=== PATIENT | male | born 1955 | race Caucasian/White ===

== ENCOUNTER 2016-12-17 14:40 | Emergency (ER) | payer MEDICARE, MEDICAID ==
[~2016-12-17] VITALS: Ht 180.3 cm; Wt 38.6 kg
[~2016-12-17 14:40] MED LIST: BENA10TA47; DOCUSATE; IBUP1POW8; OXYCODONE; SENN-8
[2016-12-17 15:43] LABS: Albumin 3.9 g/dL (3.4-5.0); Anion Gap 7 (5-15); Aspartate Aminotransferase 50 U/L (15-37); BUN/Creatinine Ratio 17.1; Blood Urea Nitrogen 19 mg/dL (7-18); Calcium 8.8 mg/dL (8.5-10.1); Carbon Dioxide 29 mmol/L (21-32); Chloride 107 mmol/L (98-107); GFR African American 87 mL/min; GFR Non-African American 72 mL/min; Glucose 85 mg/dL (74-106); Magnesium 2.3 mg/dL (1.6-2.6); Sodium 143 mmol/L (136-145)
[2016-12-17 15:48] LABS: Alkaline Phosphatase 120 U/L (45-117); Bilirubin, Total 0.9 mg/dL (0.2-1.0); Total Protein 7.1 g/dL (6.4-8.2)
[2016-12-17 15:49] LABS: Basophils # (auto) 0 uL; Basophils % (auto) 0.2 % (0.0-2.0); Eosinophils # (auto) 0.2 uL; Hematocrit 50.3 % (41.0-53.0); Hemoglobin 16.9 g/dL (13.5-17.5); Lymphocytes # (auto) 1.4 uL; Lymphocytes % (auto) 12.3 % (10.0-50.0); Mean Corpuscular Hemoglobin 32.2 pg (28.0-32.0); Mean Corpuscular Hgb Conc. 33.5 g/dL (32.0-36.0); Mean Corpuscular Volume 96.2 fL (80.0-100.0); Mean Platelet Volume 9.6 fL (7.4-10.4); Monocytes # (auto) 0.9 uL; Monocytes % (auto) 8.2 % (0.0-12.0); Neutrophils # (auto) 8.5 uL; Neutrophils % (auto) 77.3 % (37.0-80.0); Platelet Count (auto) 205 10^3/uL (140-450); Red Cell Distribution Width 13.4 % (11.6-16.0)
[2016-12-17 16:50] VITALS: BP 134/93
== END 2016-12-18 00:12 | disposition left against medical advice (07) ==
LOC: ER 14:40 → EDBD 14:40 → ER 12-18 00:12
DX: R07.9 Chest pain, unspecified (principal); Z53.21 Procedure and treatment not carried out due to patient leaving prior to being seen by health care provider
CPT/HCPCS: 36415; 71020; 80053; 83735; 84484; 85025; 93005

== ENCOUNTER 2022-07-05 18:37 | Emergency (ER) | payer OTHER, MEDICAID ==
[~2022-07-05] VITALS: Ht 180.3 cm; Wt 57.6 kg
[~2022-07-05 18:37] MED LIST changes: -BENA10TA47; +BENA1TAB20; +IBUP1POW13; -IBUP1POW8
[2022-07-05] MEDS ORDERED: ACE3T PO (22:59)
[2022-07-05] MEDS ORDERED: MORPHINE SULFATE INJ 2 MG/ml SYRG IM ONE (23:00)
[2022-07-05] MEDS ORDERED: ONDANSETRON ODT 4 MG TAB PO ONE (23:00)
[2022-07-05 23:39] VITALS: BP 129/93
== END 2022-07-05 23:58 | disposition home or self-care (01) ==
LOC: ER 18:37 → EDBD 18:37 → ER 23:58
DX: M25.551 Pain in right hip (principal); G89.29 Other chronic pain; J44.9 Chronic obstructive pulmonary disease, unspecified; I10 Essential (primary) hypertension; I25.2 Old myocardial infarction; Z96.641 Presence of right artificial hip joint
CPT/HCPCS: 73700; 93971; 96372; 99284; J2270; Q0162

== ENCOUNTER 2024-02-27 19:26 | Emergency (ER) | payer OTHER, MEDICAID ==
[~2024-02-27] VITALS: Ht 177.8 cm; Wt 118.2 kg
[~2024-02-27 19:26] MED LIST changes: +ACE3T PO
[2024-02-27] MEDS: HYDROcodone-ACET 10/325MG TAB PO ONE (20:08)
[2024-02-27 20:32] LABS: Basophils # (auto) 0 10 ^3/uL (0-0.2); Basophils % (auto) 0.5 % (0.0-2.0); Eosinophils # (auto) 0.3 10 ^3/uL (0-0.8); Eosinophils % (auto) 3.2 % (0.0-7.0); Hematocrit 44.7 % (41.0-53.0); Hemoglobin 15.3 g/dL (13.5-17.5); Lymphocytes # (auto) 1.4 10 ^3/uL (0.4-5.4); Mean Corpuscular Hemoglobin 35.4 pg (28.0-32.0); Mean Corpuscular Hgb Conc. 34.2 g/dL (32.0-36.0); Mean Corpuscular Volume 103.3 fL (80.0-100.0); Monocytes # (auto) 1.1 10 ^3/uL (0-1.3); Monocytes % (auto) 11.3 % (0.0-12.0); Neutrophils # (auto) 6.6 10 ^3/uL (1.6-8.6); Red Blood Cells 4.33 10^6/uL (4.5-5.90); Red Cell Distribution Width 14.1 % (11.8-14.3); White Blood Cell 9.4 10^3/uL (4.4-10.8)
[2024-02-27 20:50] LABS: Alanine Aminotransferase 76 U/L (7-40); Albumin 3.4 g/dL (3.2-4.8); Alkaline Phosphatase 174 U/L (46-116); Anion Gap 6 (5-15); Aspartate Aminotransferase 74 U/L (13-40); BUN/Creatinine Ratio 17.7 (10.0-20.0); Blood Urea Nitrogen 11 mg/dL (9-23); Calcium 8.9 mg/dL (8.7-10.4); Carbon Dioxide 22 mmol/L (20-30); Chloride 113 mmol/L (98-107); Glucose 132 mg/dL (74-106); Lipase 31 U/L (12-53); Potassium 3.7 mmol/L (3.5-5.1); Sodium 141 mmol/L (136-145)
[2024-02-27 20:51] LABS: Bilirubin, Total 0.7 mg/dL (0.2-1.0); Total Protein 6.4 g/dL (5.7-8.2)
[2024-02-27] MEDS ORDERED: IBUP-1455 PO (23:32)
[2024-02-27] MEDS ORDERED: HYDR-4902 PO (23:32)
[2024-02-27] MEDS ORDERED: BACDST PO (23:32)
[2024-02-28 01:00] VITALS: BP 141/87; PULSE 76; RESP 16; O2SAT 94
[2024-02-28] MEDS ORDERED: CEPHALEXIN 250 MG CAP PO SCH (06:00)
== END 2024-02-28 01:07 | disposition home or self-care (01) ==
LOC: ER 19:26 → EDBD 19:26 → ER 02-28 01:07
DX: S93.602A Unspecified sprain of left foot, initial encounter (principal); S80.12XA Contusion of left lower leg, initial encounter; K86.1 Other chronic pancreatitis; K81.9 Cholecystitis, unspecified; J44.9 Chronic obstructive pulmonary disease, unspecified; I10 Essential (primary) hypertension; Z79.1 Long term (current) use of non-steroidal anti-inflammatories (NSAID); Z98.890 Other specified postprocedural states; X50.1XXA Overexertion from prolonged static or awkward postures, initial encounter; Y93.89 Activity, other specified; Y92.89 Other specified places as the place of occurrence of the external cause; Y99.8 Other external cause status
CPT/HCPCS: 36415; 71250; 73610; 73630; 74176; 80053; 83605; 83690; 83880; 84484; 85025; 93005; 93971

== ENCOUNTER 2025-03-13 20:06 | Inpatient (IN) | payer OTHER, MEDICAID ==
[~2025-03-13] VITALS: Ht 182.9 cm; Wt 109.5 kg
[~2025-03-13 20:06] MED LIST changes: +BACDST PO; +BENA10TA93 PO; +CARV3.1240 PO; +CHOL50007 PO; +HYDR-4902 PO; +IBUP-1455 PO; +POTA-228 PO; +TRIA37.586 PO
--- NOTE | 2025-03-13 20:24 | ED.PDOC ---
History of Present Illness HPI Comments This is a 69-year-old male who comes in with chief complaint of chest pain somewhat off and on since Wednesday. The patient states that he was at home and when he gets up to ambulate he started to develop some pressure-like chest pain as well as some shortness for breath. He states that today the chest pain w orsens with the point where it was a 9/10. He states that it is associated with shortness a breath as well as nausea. It does radiate to both the right and left arms. At home, the patient took one nitroglycerin as well as some aspirin and the patient's pain went down to a 3/10. The paramedics arrived and the patient was then transported to our facility. Upon arrival, the patient is able to give his medical history without any difficulty. Time Seen by MD: 20:13 Reviewed Notes: Nurses Notes, Installer Helper Notes, Medications, Allergies (No allergies to medications) Allergies: Coded Allergies: NO KNOWN ALLERGIES (Unverified , 06/29/10) Home Meds Active Scripts Hydrocodone-Acetaminophen (Hydrocodone Bitartrate/AC 5-325 mg) 1 Tab Tab, 1 TAB PO Q6HP PRN, #15 TAB Prov:LUIS THOMAS PAC 02/27/24 Ibuprofen Micronized (Ibuprofen) 800 Mg Tab, 800 MG PO Q8HP PRN, #20 TAB Prov:LUIS THOMAS PAC 02/27/24 Sulfamethoxazole W/Trimethopri (Bactrim Ds Tablet) 1 Tab Tb, 1 TAB PO BID for 10 Days, #20 TAB Prov:LUIS THOMAS PAC 02/27/24 Acetaminophen W/ Codeine (Tylenol W/Cod #3) 1 Tab Tb, 1 TAB PO QIDP, #10 TAB 0 Refills Prov:GENEVA ESPARZA 07/05/22 Reported Medications [Oxycodone] No Conflict Check 07/30/10 Ibuprofen (Ibuprofen) Pow 07/30/10 Sennosides-Docusate Sodium (Senna) 1 Tab Tab 07/30/10 [Docusate] No Conflict Check 07/30/10 Benazepril & Hydrochlorothiazi (Benazepril Hcl/Hydrochlor) 1 Tab Tab 07/30/10 Information Source: Patient, Emergency Med Personnel Mode of Arrival: EMS Severity: Moderate Timing: Days Duration: Intermittent Prehospital treatment: 12 Lead EKG, ASA, Byproduct Engineer, IVF, NTG Location: Substernal chest pain with radiation to both arms as well as nausea and shortness of breaths Associated signs and symptoms No associated symptoms otherwise Past Medical History PAST MEDICAL HISTORY: CHF, COPD, DM, High Lipids, HTN, OR Surgical History: PTCA Surgical History (Other): Right lung partial resection, right hip surgery Family History Family History: No family hx of Lung jade, No family hx of Stroke, Family hx of heart jade, Family hx of stroke Social History Smoker: Non-Smoker Alcohol: Occasionally Drugs: Denies Drug Use Lives In: Home Constitutional: denies: chills, diaphoresis, fatigue, fever, malaise, sweats, weakness, others EENTM: denies: blurred vision, double vision, ear bleeding, ear discharge, ear drainage, ear pain, ear ringing, eye pain, eye redness, hearing loss, mouth pain, mouth swelling, nasal discharge, nose bleeding, nose congestion, nose pain, photophobia, tearing, throat pain, throat swelling, voice changes, others Respiratory: reports: shortness of breath; denies: cough, hemoptysis, orthopnea, SOB at rest, SOB with excertion, stridor, wheezing, others Cardiovascular: reports: chest pain; denies: dizzy spells, diaphoresis, Dyspnea on exertion, edema, irregular heart beat, left arm pain, lightheadedness, palpitations, PND, syncope, others Gastrointestinal: reports: nausea; denies: abdomen distended, abdominal pain, blood streaked bowels, constipated, diarrhea, dysphagia, difficulty swallowing, hematemesis, melena, poor appetite, poor fluid intake, rectal bleeding, rectal pain, vomiting, others Genitourinary: denies: burning, dysuria, flank pain, frequency, hematuria, incontinence, penile discharge, penile sore, pain, testicle pain, testicle swelling, urgency, others Neurological: denies: dizziness, fainting, headache, left sided numbness, left sided weakness, numbness, paresthesia, pre-existing deficit, right sided numbness, right sided weakness, seizure, speech problems, tingling, tremors, weakness, others Musculoskeletal: denies: back pain, gout, joint pain, joint swelling, muscle pain, muscle stiffness, neck pain, others Integumetry: denies: bruises, change in color, change in hair/nails, dryness, laceration, lesions, lumps, rash, wounds, others Allergic/Immunocompromised: denies: Difficulty Healing, Frequent Infections, Hives, Itching, others Hematologic/Lymphatic: denies: anemia, blood clots, easy bleeding, easy br uising, swollen glands, others Endocrine: denies: excessive hunger, excessive sweating, excessive thirst, excessive urination, flushing, intolerance to cold, intolerance to heat, unexplained weight gain, unexplained weight loss, others Psychiatric: denies: anxiety, bipolar disorder, depression, hopeless, panic disorder, schizophrenia, sleepless, suicidal, others Physical Exam General Appearance: Moderate Distress, Obese HEENT: Normal ENT Inspection, Pharynx Normal, TMs Normal Neck: Full Range of Motion, Non-Tender, Normal, Normal Inspection Respiratory: Chest Non-Tender, Lungs Clear, No Accessory Muscle Use, No Respi ratory Distress, Normal Breath Sounds Cardiovascular: No Edema, No JVD, No Murmur, No Gallop, Normal Peripheral Pulses, Regular Rate/Rhythm Breast Exam: Deferred Gastrointestinal: No Organomegaly, Non Tender, No Pulsatile Mass, Normal Bowel Sounds, Soft Genitalia: Deferred Pelvic: Deferred Rectal: Deferred Extremities: No calf tenderness, Normal capillary refill, Normal inspection, Normal range of motion, Non-tender, No pedal edema Musculoskeletal : Apperance: Normal Neurologic: Alert, pediatric clinical dietician II-XII nml as Tested, No Motor Deficits, Normal Affect, Normal Mood, No Sensory Deficits Cerebellar Function: Normal Reflexes: Normal Skin: Dry, Normal Color, Warm Lymphatic: No Adenopathy Was a procedure done? Was a procedure done?: No EKG EKG : Pulse Rate (adult): 96 [place]: Normal Cardiac Rhythm: NSR ST: Nonsp (Low voltage) Differential Dx Considerations may include: ACS, OR, generalized weakness, dehydration X-Ray, Labs, Meds, VS Vital Signs Date Time Temp Pulse Resp B/P (MAP) Pulse Ox O2 Delivery O2 Flow Rate FiO2 03/13/25 21:09 85 03/13/25 20:25 98.0 90 18 131/78 98 98.0 03/13/25 20:24 96 03/13/25 20:06 96 Lab Test 03/13/25 21:20 03/13/25 20:30 Range/Units Troponin I High Sensitivity Pending Pending White Blood Count 8.2 4.4-10.8 10^3/uL Red Blood Count 4.29 L 4.5-5.90 10^6/uL Hemoglobin 15.1 13.5-17.5 g/dL Hematocrit 43.8 41.0-53.0 % Mean Corpuscular Volume 102.1 H 80.0-100.0 fL Mean Corpuscular Hemoglobin 35.3 H 28.0-32.0 pg Mean Corpuscular Hemoglobin Concent 34.5 32.0-36.0 g/dL Red Cell Distribution Width 14.6 H 11.8-14.3 % Platelet Count 104 L 140-450 10^3/uL Mean Platelet Volume 9.1 6.9-10.8 fL Neutrophils (%) (Auto) 73.1 37.0-80.0 % Lymphocytes (%) (Auto) 12.4 10.0-50.0 % Monocytes (%) (Auto) 10.9 0.0-12.0 % Eosinophils (%) (Auto) 3.1 0.0-7.0 % Basophils (%) (Auto) 0.5 0.0-2.0 % Neutrophils # (Auto) 6.0 1.6-8.6 10 ^3/uL Lymphocytes # (Auto) 1.0 0.4-5.4 10 ^3/uL Monocytes # (Auto) 0.9 0-1.3 10 ^3/uL Eosinophils # (Auto) 0.3 0-0.8 10 ^3/uL Basophils # (Auto) 0 0-0.2 10 ^3/uL Nucleated Red Blood Cells 0.1 % Sodium Level Pending Potassium Level Pending Chloride Level Pending Carbon Dioxide Level Pending Anion Gap Pending Blood Urea Nitrogen Pending Creatinine Pending Glomerular Filtration Rate Calc Pending BUN/Creatinine Ratio Pending Serum Glucose Pending Calcium Level Pending B-Type Natriuretic Peptide Pending IV Hep-Lock was established Patient has already received aspirin and nitroglycerin arrival The patient's CBC is within normal limits At this time the patient will be admitted to the hospitalist The patient received aspirin prior to arrival as well as nitroglycerin The patient was admitted Images Reviewed?: Images reviewed and evaluated by me Time of 1ST Reevaluation: 20:23 Reevaluation 1ST: Unchanged Patient Education/Counseling: Diagnosis, Treatment, Prognosis Family Education/Counseling: No Family Present SEPSIS Sepsis Screen Physician Orders Electrocardigram (03/13/25 20:14) Electrocardigram (03/13/25 21:14) Electrocardigram (03/13/25 23:14) Chest Portable (03/13/25 20:14) B-Type Natriuretic Peptide (03/13/25 20:14) Heplock Iv (03/13/25 20:14) Byproduct Engineer (03/13/25 20:14) Blood Pressure (03/13/25 20:14) Pulse Oximetry (03/13/25 20:14) Urinalysis (03/13/25 20:14) Troponin-I Hs (03/13/25 20:14) Troponin-I Hs (03/13/25 21:14) Troponin-I Hs (03/13/25 23:14) Basic Metabolic Panel (03/13/25 20:14) Vital Signs Date Time Temp Pulse Resp B/P (MAP) Pulse Ox O2 Delivery O2 Flow Rate FiO2 03/13/25 21:09 85 03/13/25 20:25 98.0 90 18 131/78 98 98.0 03/13/25 20:24 96 03/13/25 20:06 96 Laboratory Tests Test 03/13/25 20:30 White Blood Count 8.2 10^3/uL (4.4-10.8) Departure 1 Departure Time of Disposition: 21:33 Impression: Primary Impression: Acute coronary syndrome Disposition: ADMITTED INPATIENT Admit to: Tele Condition: Fair Critical Care Note Critical Care Time?: Yes (45 min-critical care time only) Stability Stability form required: Yes Unstable for transfer: Telemetry monitoring (Telemetry monitoring required), ED Physician Assesment (Clinical assesment) Heart Score Heart Score: Heart Score Response (Comments) Value History Moderate Suspicious 1 EKG Repolarization Disturb 1 Age >65 2 Risk Factors 1 or 2 risk factors 1 Troponin Normal limit 0 Total 5 RADHA AGUILAR MD Mar 13, 2025 20:24
[2025-03-13 20:46] LABS: Hematocrit 43.8 % (41.0-53.0); Hemoglobin 15.1 g/dL (13.5-17.5); Mean Corpuscular Hemoglobin 35.3 pg (28.0-32.0); Mean Corpuscular Volume 102.1 fL (80.0-100.0); Nucleated Red Blood Cells % 0.1 %
[2025-03-13 20:59] LABS: Potassium 4.1 mmol/L (3.5-5.1); Sodium 145 mmol/L (136-145)
[2025-03-13 21:00] LABS: Anion Gap 7 (5-15); Carbon Dioxide 26 mmol/L (20-31)
[2025-03-13 21:05] LABS: BUN/Creatinine Ratio 13.7 (10.0-20.0); Blood Urea Nitrogen 14 mg/dL (9-23)
--- NOTE | 2025-03-13 21:37 | DVH ---
CHEST RADIOGRAPH REASON FOR EXAM: Chest pain COMPARISON: None TECHNIQUE: One view of the chest is provided FINDINGS: The cardiomediastinal silhouette is within normal limits for size. There is elevation of th e right hemidiaphragm. There is right basilar airspace disease. There is blunting of the right costo phrenic sulcus which may be secondary to scarring or small right pleural effusion. There is no pneumo thorax. There is irregularity of multiple right-sided ribs, possibly secondary to prior thoracic surg kortney. No acute rib fracture is identified. IMPRESSION: Right basilar airspace disease. Pneumonia is not ruled out. Irregularity of multiple right-sided ribs, possibly secondary to prior thoracic surgery. Correlate c linically. No acute rib fracture is identified.
[2025-03-13 21:53] LABS: Calcium 8.6 mg/dL (8.7-10.4); Chloride 112 mmol/L (98-107); Glucose 108 mg/dL (74-106)
[2025-03-13 22:45] VITALS: PULSE 85; RESP 11; O2SAT 96
--- NOTE | 2025-03-13 22:48 | ECG ---
[facility] Test Date: 2025-03-13 Test Time: 21:09:04 Pat Name: BHUMI TORRES Department: ED Room: [address] [place] [address] Gender: M Ladle Puller: KARMEN : 1955 Requested By: RADHA AGUILAR Order Number: [id number] Reading MD: Dwaine Lima Measurements Intervals [place] Rate: 85 P: 29 ID: 140 QRS: 65 QRSD: 91 T: 31 QT: 382 QTc: 455 Interpretive Statements Sinus rhythm Low voltage, precordial leads Electronically Signed On 03-14-2025 17:54:44 PDT by Dwaine Lima Please click the below link to view image of tracing.
--- NOTE | 2025-03-13 23:08 | ECG ---
[facility] Test Date: 2025-03-13 Test Time: 23:01:59 Pat Name: BHUMI TORRES Department: ED Room: [address] [place] [address] Gender: M Able Bodied Watchman: KARMEN : 1955 Requested By: RADHA AGUILAR Order Number: [id number] Reading MD: Dwaine Lima Measurements Intervals [place] Rate: 80 P: 12 TN: 147 QRS: 23 QRSD: 93 T: 33 QT: 395 QTc: 456 Interpretive Statements Sinus rhythm Low voltage, precordial leads Electronically Signed On 03-14-2025 17:54:48 PDT by Dwaine Lima Please click the below link to view image of tracing.
[2025-03-13] MEDS ORDERED: MORPHINE SULFATE INJ 2 MG/ml SYRG IV PRN (23:30)
[2025-03-13] MEDS ORDERED: NITROGLYCERIN 0.4 MG SL TAB SL PRN (23:30)
--- NOTE | 2025-03-13 23:53 | DVHHPRES ---
History of Present Illness Resident Creating Document: MARCE WASHINGTON RESIDENT History of Present Illness Donato Marcano is a 69-year-old male with past medical history of hypertension, diabetes type 2, COPD, UT ( 1 stent placed on RCA 05/2016) and CHF. The patient came to the ED via EMT with chief complaint of 4 days of on and off episodes of pressure-like chest pain /10 that increased while deambulating at home. Today, the pain did not subside and start increasing in intensity up to 10, with irradiation to both right and left arms, associated with shortness a breath, nausea and dizziness. The patient took aspirin and sublingual nitroglycerin at home with partial relief to 10. The patient denies syncope, palpitation, sweating, fever, chills, vomit or other symptoms. In the ED the troponins 47, 58, 95. EKG show low voltage leads. Cardiovascular: CAD, CHF, HTN, UT, hyperipidemia, Other (Stent placement RCA 2015 [facility]) Past Surgical History: Other (Right lung resection), Total hip replacement (Right) Family History: Other (heart diseases) Smoke: No ALCOHOL: occassional Lives: Alone Review of Systems Constitutional: No: Fever, Chills, Sweats, Weakness, Malaise, Other Eyes: No: Pain, Vision change, Conjunctivae inflammation, Eyelid inflammation, Other, Redness ENT: No: Ear pain, Ear discharge, Nose pain, Nose discharge, Nose congestion, Mouth pain, Mouth swelling, Throat pain, Throat swelling, Other Respiratory: Shortness of breath, SOB with excertion Cardiovascular: Chest Pain, Palpitations, Lt Headedness Gastrointestinal: Nausea Genitourinary: No Dysuria, No Frequency, No Incontinence, No Hematuria, No Retention, No Other Musculoskeletal: other (Leg swelling) Skin: No: Rash, Lesions, Jaundice, Bruising, Other Neurological: No: Weakness, Numbness, Incoordination, Change in speech, Confusion, Seizures, Other Allergies: Coded Allergies: NO KNOWN ALLERGIES (Unverified , 06/29/10) Medications Current Medications Medications Dose Ordered Sig/Kevin Route Start Time Stop Time Status Last Admin Dose Admin Hydromorphone HCl 0.5 mg Q4HP PRN IV 03/13/25 23:30 UNV Morphine Sulfate 2 mg Q4HPRN PRN IV 03/13/25 23:30 UNV Enoxaparin Sodium 40 mg DAILY SC 03/14/25 10:00 UNV Nitroglycerin 0.4 mg Q5MINP PRN SL 03/13/25 23:30 UNV Morphine Sulfate 2 mg Q30M PRN IV 03/13/25 23:30 UNV Exam Vital Signs Vital Signs Date Time Temp Pulse Resp B/P (MAP) Pulse Ox O2 Delivery O2 Flow Rate FiO2 03/13/25 23:01 80 03/13/25 22:45 97.8 11 140/78 (98) 96 97.8 General Appearance: Alert, Oriented X3, Cooperative, No acute distress HEENT: Atraumatic, PERRLA, Mucous membr. moist/pink Respiratory: Clear to auscultation, Normal air movement Cardiovascular: Regular rate, Normal S1, Normal S2, No murmurs Abdominal: Normal bowel sounds, Soft, No tenderness, No hepatospenomegaly, No masses Extremities: No clubbing, No cyanosis, Other (Bilateral leg pitting edema ) Skin: No rashes, No breakdown, No significant lesion Neuro: Normal gait, Normal speech, Strength at 5/5 X4 ext, Normal tone, Sensation intact, Cranial nerves 3-12 NL Psych/Mental Status: Mental status NL Labs/Xrays Labs Test 03/13/25 23:28 03/13/25 20:30 Range/Units White Blood Count 8.2 4.4-10.8 10^3/uL Red Blood Count 4.29 L 4.5-5.90 10^6/uL Hemoglobin 15.1 13.5-17.5 g/dL Hematocrit 43.8 41.0-53.0 % Mean Corpuscular Volume 102.1 H 80.0-100.0 fL Mean Corpuscular Hemoglobin 35.3 H 28.0-32.0 pg Mean Corpuscular Hemoglobin Concent 34.5 32.0-36.0 g/dL Red Cell Distribution Width 14.6 H 11.8-14.3 % Platelet Count 104 L 140-450 10^3/uL Mean Platelet Volume 9.1 6.9-10.8 fL Neutrophils (%) (Auto) 73.1 37.0-80.0 % Lymphocytes (%) (Auto) 12.4 10.0-50.0 % Monocytes (%) (Auto) 10.9 0.0-12.0 % Eosinophils (%) (Auto) 3.1 0.0-7.0 % Basophils (%) (Auto) 0.5 0.0-2.0 % Neutrophils # (Auto) 6.0 1.6-8.6 10 ^3/uL Lymphocytes # (Auto) 1.0 0.4-5.4 10 ^3/uL Monocytes # (Auto) 0.9 0-1.3 10 ^3/uL Eosinophils # (Auto) 0.3 0-0.8 10 ^3/uL Basophils # (Auto) 0 0-0.2 10 ^3/uL Nucleated Red Blood Cells 0.1 % Sodium Level 145 136-145 mmol/L Potassium Level 4.1 3.5-5.1 mmol/L Chloride Level 112 H 98-107 mmol/L Carbon Dioxide Level 26 20-31 mmol/L Anion Gap 7 5-15 Blood Urea Nitrogen 14 9-23 mg/dL Creatinine 1.02 0.700-1.30 mg/dL Glomerular Filtration Rate Calc 81 >90 mL/min BUN/Creatinine Ratio 13.7 10.0-20.0 Serum Glucose 108 H 74-106 mg/dL Calcium Level 8.6 L 8.7-10.4 mg/dL B-Type Natriuretic Peptide 58.15 0-100 pg/mL SEPSIS Sepsis Screen Date sepsis recognized/suspect: Mar 13, 2025 Time Sepsis recognized/suspect: 2318 Recent Procedure: No On Antibiotic Therapy: No Respiratory Rate >20: No Heart Rate >90: No Temp<36 C (96.8 F) or >38.3 C: No SBP <90 or MAP <65 mmHG: No New Acute Mental Status Change: No Is the patient on CPAP, BIPAP,: No Physician Orders Electrocardigram (03/13/25 23:14) Chest Portable (03/13/25 20:14) Heplock Iv (03/13/25 20:14) Relief Pilot (03/13/25 20:14) Blood Pressure (03/13/25 20:14) Pulse Oximetry (03/13/25 20:14) Urinalysis (03/13/25 20:14) Troponin-I Hs (03/13/25 23:14) Admit (03/13/25 23:28) Code Status (03/13/25 23:28) Vital Signs .PER UNIT PROTOCOL (03/13/25 23:28) Review Orders With Adm. (03/13/25:) Bedside Commode (03/13/25 23:) Notify Md Of Changes From Base (03/13/25 23:28) Advance Directive (03/13/25 23:28) Echo 2d Mode Cardiac Dop (03/13/25:) Patient Condition (03/13/25:) Allergies (03/13/25:) Hydromorphone Injection (Dilaudid Inject (03/13/25 23:30) Drug Screen (03/13/25:) Morphine Sulfate Injection (03/13/25:) Enoxaparin Sodium (Lovenox) (03/14/25 10:00) Nitroglycerin Sublingual (Ntrostat Subli (03/13/25 23:30) Stat Ekg For Chest Pain (03/13/25:) Notify Md Of Changes From Base (03/13/25:) Shaping Machine Operator For 24 Hours (03/13/25 23:) Rhythm Strips Once Every Shift (03/13/25 23:28) Emergency Dysrhythmia Protocol (03/13/25 23:) * Cardiology Consult (03/13/25 23:28) Cardiac Diet-2gna,Lofat,Lochol (03/14/25 Breakfast) Complete Blood Count (03/14/25 04:00) Comprehensive Metabolic Panel (03/14/25 04:00) Vital Signs Date Time Temp Pulse Resp B/P (MAP) Pulse Ox O2 Delivery O2 Flow Rate FiO2 03/13/25 23:01 80 03/13/25 22:45 97.8 85 11 140/78 (98) 96 97.8 03/13/25 21:09 85 03/13/25 20:25 98.0 90 18 131/78 98 98.0 03/13/25 20:24 96 03/13/25 20:06 96 Laboratory Tests Test 03/13/25 20:30 White Blood Count 8.2 10^3/uL (4.4-10.8) Assessment/Plan Assessment/Plan #Chest pain due to ACS NSTEMI likely type 1 Morphine 2mg IV Nitroglycerin 0.4mg EKG Troponins ECHO Cardiology consult #Chronic CHF Lasix 20 mg IV #Status post UT with Stent placement (RCA) Aspirin 81mg po Atorvastatin 40mg po #Chronic COPD Hx Lung lobe resection #Hypertension Benazepril #DM type 2 Insulin sliding scale Cardiac diet DVT prophylaxis PUD prophylaxis Protonic Goals of care discussed with the patient > 35 min. Discussed plan of care with Dr. Theodore Code status: Full code PCP: Does not recall name Plan discussed with: Patient, the patient agrees with the plan. Plan discussed with: Patient My Orders Orders - MARCE WASHINGTON RESIDENT Procedure Category Date Status Time Admit ADMIT 03/13/25 Transmitted 23:28 Code Status CODE 03/13/25 Transmitted 23:28 Vital Signs [facility] 03/13/25 In Process 23:28 Review Orders With [facility] 03/13/25 In Process Adm. 23:28 Bedside Commode [facility] 03/13/25 In Process 23:28 Notify Of Changes [facility] 03/13/25 In Process From Base 23:28 Advance Directive [facility] 03/13/25 In Process 23:28 Echo 2d Mode Cardiac US 03/13/25 Logged DOP 23:28 Patient Condition ORDERS 03/13/25 Transmitted 23:28 Allergies [facility] 03/13/25 In Process 23:28 Hydromorphone PHA 03/13/25 Logged Injection (Dilaudid 23:30 Drug Screen LAB 03/13/25 Logged 23:28 Morphine Sulfate [facility] 03/13/25 Logged Injection 23:30 Enoxaparin Sodium PHA 03/14/25 Logged (Lovenox) 10:00 Nitroglycerin [facility] 03/13/25 Logged Sublingual (Ntrostat 23:30 Stat Ekg For Chest [facility] 03/13/25 In Process Pain 23:28 Notify Of Changes [facility] 03/13/25 In Process From Base 23:28 Shaping Machine Operator For [facility] 03/13/25 In Process 24 Hours 23:28 Rhythm Strips Once [facility] 03/13/25 In Process Every Shift 23:28 Emergency Dysrhythmia [facility] 03/13/25 In Process Protocol 23:28 * Cardiology Consult CONS 03/13/25 Transmitted 23:28 Cardiac DIET 03/14/25 Transmitted Diet-2gna,Lofat,Lochol Breakfast Complete Blood Count LAB 03/14/25 Verified 04:00 Comprehensive LAB 03/14/25 Verified Metabolic Panel 04:00 Common Visit Codes: 71764-CGCEXHG INP/OBS CARE (HIGH) Secondary Visit Codes: 19083-QTHYTQSU CARE PLAN 30 MINUTES MARCE WASHINGTON RESIDENT Mar 13, 2025 23:53
[2025-03-14] VITALS (10 sets, daily range): BP systolic 132–142; BP diastolic 72–90; PULSE 71–78; RESP 15–96; TEMP 97.4–97.8; O2SAT 94–100
[2025-03-14] MEDS: MORPHINE SULFATE INJ 2 MG/ml SYRG IV PRN (01:28)
[2025-03-14 01:43] LABS: Triglycerides 130 mg/dL (< 150)
[2025-03-14 01:45] LABS: Cholesterol 146 mg/dL (< 200); HDL Cholesterol 48 mg/dL (40-59)
[2025-03-14] MEDS: PANTOPRAZOLE 40 MG TAB PO SCH (06:14)
[2025-03-14 06:58] LABS: Anion Gap 7 (5-15); BUN/Creatinine Ratio 25.4 (10.0-20.0); Blood Urea Nitrogen 17 mg/dL (9-23); Carbon Dioxide 23 mmol/L (20-31); Glucose 92 mg/dL (74-106); Potassium 3.9 mmol/L (3.5-5.1); Sodium 144 mmol/L (136-145); Total Protein 5.8 g/dL (5.7-8.2)
[2025-03-14 06:59] LABS: Bilirubin, Total 0.9 mg/dL (0.2-1.0)
[2025-03-14 07:00] LABS: Alanine Aminotransferase 58 U/L (7-40); Albumin 2.8 g/dL (3.2-4.8); Alkaline Phosphatase 134 U/L (46-116); Calcium 8.0 mg/dL (8.7-10.4); Chloride 114 mmol/L (98-107)
[2025-03-14 07:05] LABS: Mean Corpuscular Volume 101.6 fL (80.0-100.0); Nucleated Red Blood Cells % 0.1 %
[2025-03-14] MEDS: HYDROmorphone HCL 2 MG/ML VL/or syr IV PRN (07:05)
[2025-03-14 07:09] LABS: Hematocrit 40.3 % (41.0-53.0); Hemoglobin 14.2 g/dL (13.5-17.5); Mean Corpuscular Hemoglobin 35.7 pg (28.0-32.0)
[2025-03-14 09:55] LABS: INR 1.31 (0.9-1.15); Partial Thromboplastin Time 29.8 SEC (24.5-34.5); Prothrombin Time 13.5 sec (9.3-11.8)
[2025-03-14] MEDS ORDERED: ENOXAPARIN SOD 40 MG/0.4 ML SYRINGE SC SCH (10:00)
[2025-03-14] MEDS: ATORVASTATIN 20 MG TAB PO SCH (10:19)
[2025-03-14 11:08] LABS: Hepatitis A Total Antibody Positive (Negative); Hepatitis B Surface Antigen Negative (Negative); Hepatitis C Antibody Negative (Negative)
--- NOTE | 2025-03-14 11:39 | DVH ---
Technique: Real-time ultrasound imaging of the abdomen was performed with grayscale and color Doppler . Indication: transamnitis Comparison: None Findings: Liver measures 17.2 cm. It is increased in echogenicity and echotexture without focal mass. Portal v ein is normal in caliber and demonstrates normal hepatopetal flow. Moderate volume ascites fluid. Gallbladder demonstrates no evidence for cholelithiasis. Gallbladder distention and sludge. There is no pericholecystic fluid. The wall thickness is normal. The common bile duct measures 5 mm. No intrahepatic biliary ductal dilatation. The right kidney measures 12.2 cm. The left kidney measures 10.9 cm. No hydronephrosis . Nonobstructi ng right renal calculus measuring 9 mm. The visualized portion of the pancreas is unremarkable. Impression: Cirrhotic morphology liver and moderate volume of ascites fluid. Hepatomegaly. Gallbladder distention. Gallbladder sludge. A 9 mm nonobstructing right renal calculus
[2025-03-14] MEDS: cefTRIAXone 1GM/50ML D5W 50 ML IV ONE (12:22)
[2025-03-14] MEDS: FUROSEMIDE 40 MG/4 ML VIAL IV ONE (12:22)
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
--- NOTE | 2025-03-14 13:09 | DVHPNRES ---
Progress Note Date Seen: Mar 14, 2025 Resident Creating Document: TOMAS RAMOS Medical Necessity Reason Pt with a Central, PICC or Fol: No Subjective Review of Systems Patient is a 69 years old male with past medical history of hypertension, diabetic mellitus type 2, COPD, stroke x2, CAD, VA s/p PCI 1xDES to RCA @ [facility], D, presents with chest pain. Patient describes the pain started 4 days ago, pressure-like, radiate to both arms, associated with nausea, dizziness and shortness of breath. Chest pain gets worse when he walk and it gets better after taking Aspirin, Nitroglycerin. According to the patient, he has been having chest pain on exertion/eating off and on for the past couple years, however, over the last 4 days he has noticed worsening of the chest pain which is what prompted this visit to the hospital. Initial twelve lead electrocardiogram reveals normal sinus rhythm with baseline wander. Repeat EKGs to not show any significant ST segment changes. Initial troponin level of 47ng/L with up trend and peak level at 124ng/L. Patient reports he has not followed up with a cost estimating engineer since his stent placement and only underwent one stress test in 2017 which was negative. Past medical history: coronary artery disease status post PTCA and stenting to mid RCA in 2016, hypertension, dyslipidemia, myocardial infarction, empyema with right lower lobe resection, GERD, and morbid obesity Past surgical history: Right lung resection, total hip replacement Social & Personal history: Denies smoking. Denies drugs. Drinks alcohol occasionally. Allergies: Denies Patient seen and examined at bedside. Patient is alert and oriented to time, place person and responding to all questions. Eyes: No Pain, No Vision change, No Conjunctivae inflammation, No Eyelid inflammation, No Other, No Redness ENT: No Ear pain, No Ear discharge, No Nose pain, No Nose discharge, No Nose congestion, No Mouth pain, No Mouth swelling, No Throat pain, No Throat swelling, No Other Cardiovascular: Chest Pain, No Palpitations, No Orthopnea, No Paroxysmal No Dyspnea, No Edema, No Lt Headedness, No Other Respiratory: SOB with exertion. No Cough, No Dry, No Shortness of breath, No Wheezing, No Hemoptysis, No Pleuritic Pain, No Sputum, No Other Gastrointestinal: Nausea, No Vomiting, No Abdominal Pain, No Diarrhea, No Constipation, No Melena, No Hematochezia, No Other Genitourinary: No Dysuria, No Frequency, No Incontinence, No Hematuria, No Retention, No Other Musculoskeletal: No other, No neck pain, No shoulder pain, No arm pain, No back pain, No hand pain, No leg pain, No foot pain Skin: No Rash, No Lesions, No Jaundice, No Bruising, No Other Objective vital signs Vital Sign Date Time Temp Pulse Resp B/P (MAP) Pulse Ox O2 Delivery O2 Flow Rate FiO2 03/14/25 12:22 137/72 03/14/25 12:10 66 15 03/14/25 11:30 99 03/14/25 07:30 98.1 98.1 03/14/25 07:30 Nasal Cannula* 1 24 medications Current Medications Medications Dose Ordered Sig/Kevin Route Start Time Stop Time Status Last Admin Dose Admin Morphine Sulfate 2 mg Q4HPRN PRN IV 03/13/25 23:30 03/14/25 11:23 2 MG Nitroglycerin 0.4 mg Q5MINP PRN SL 03/13/25 23:30 Morphine Sulfate 2 mg Q30M PRN IV 03/13/25 23:30 UNV Pantoprazole Sodium 40 mg DAILY@0600 PO 03/14/25 06:00 03/14/25 06:14 40 MG Aspirin 81 mg DAILY PO 03/14/25 10:00 03/14/25 10:19 81 MG Atorvastatin Calcium 40 mg DAILY PO 03/14/25 10:00 03/14/25 10:19 40 MG Ceftriaxone Sodium 50 ml @ 100 mls/hr DAILY@09 IV 03/15/25 09:00 Furosemide 40 mg DAILY IV 03/15/25 10:00 Examination General Appearance: Cooperative. Well developed. Well nourished. NAD Head Exam: Normal inspection Neck Exam: Normal inspection. Non-tender. Normal alignment Pulmonary/Respiratory: Chest non-tender. Course bilateral breath sounds, decreased breath sounds on the right versus left. no crackles, no wheezing. Cardiovascular/Chest: Regular rate and rhythm. No murmurs. No JVD. Peripheral Pulses: 2+ Radial (R). 2+ Radial (L). 2+ Pedal (R). 2+ Pedal (L) Abdominal Exam: Normal bowel sounds. Soft. normal abdomen, no visible veins, Nontender. No hepatospenomegaly. No masses Lower extremities: 2+ lower extremity edema Neuro/Mental Status: A&O x4. Coherent. Thoughts/Psych: Normal thought pattern. Appropriate mood and affect. Good judgement and insight Skin Exam: Normal inspection. Normal color. Warm. Dry laboratory and microbiology Laboratory Tests 03/14/25 06:17 Test 03/14/25 06:17 Range/Units Serum Glucose 92 74-106 mg/dL Labs and/or images reviewed: Labs reviewed by me (RN), Image(s) reviewed by me Problem List/Assessment/Plan Problem List/Assessment/Plan #Chest pain, NSTEMI type 1 vs 2 -Morphine 2mg IV -Nitroglycerin 0.4mg -EKG -Troponins 95 > 124 > 181 -ECHO -Cardiology consult -Stress test # acute hypoxic respiratory failure, on 2 L O2 NC # COPD exacerbation # possible Penumonia -Hx Lung lobe resection -Chest X-ray- Right basilar airspace disease. Pneumonia is not ruled out. Irregularity of multiple right-sided ribs, possibly secondary to prior thoracic surgery. Correlate clinically. No acute rib fracture is identified. - ipratropium and albuterol med nebs - IV ceftriaxone # transaminitis likely due to liver cirrhosis, compensated. Meld 9 -AST 59 H, ALT 58 H, ALP 134 H, Albumin 2.8 L -Liver US- Cirrhotic morphology liver and moderate volume of ascites fluid. Hepatomegaly. Gallbladder distention. Gallbladder sludge. A 9 mm nonobstructing right renal calculus - monitor # probable acute on Chronic CHF, systolic versus diastolic -Lasix 20 mg IV - ordered echocardiogram #Status post VA with Stent placement (RCA) -Aspirin 81mg po -Atorvastatin 40mg po #Hypertension, blood pressure currently soft - holding home antihypertensive benazepril-thiazide Cardiac diet PUD prophylaxis: protonix 40mg DVT prophylaxis: Levonox 40mg Goals of care: Full code, discussed for >16 minutes on 03/14/25 Plan discussed with patient Plan discussed with Dr. Whittaker Plan discussed with: Patient, Other My Orders My Orders Orders - TOMAS RAMOS RESIDENT Procedure Category Date Status Time Ceftriaxone 1gm/50ml PHA 03/15/25 In Process D5w (Rocephin) 09:00 Furosemide Injection PHA 03/15/25 In Process (Lasix Injection) 10:00 Date of Service: Mar 14, 2025 Billing Provider: FLAVIA WHITTAKER MD Common Visit Codes: [id number] INP/OBS CARE(HIGH) Secondary Visit Codes: [id number] CARE PLAN 30 MINUTES TOMAS RAMOS RESIDENT Mar 14, 2025 13:09 TIM BOURGEOIS RESIDENT Mar 14, 2025 14:48 FLAVIA WHITTAKER MD Mar 14, 2025 19:30
[2025-03-14 13:16] LABS: Urine Protein, UAD Negative (Negative)
[2025-03-14 13:28] LABS: Opiate Scree,Urine Neg (NEGATIVE)
[2025-03-14 13:30] LABS: Amphetamine Screen, Urine Neg (NEGATIVE); Barbiturate Scree,Urine Neg (NEGATIVE); Benzodiazephine Screen, Urine Neg (NEGATIVE); Cannabinoid Screen, Urine Neg (NEGATIVE); Cocaine Screen, Urine Neg (NEGATIVE); Phencyclidine Screen, Urine Neg (NEGATIVE)
[2025-03-14] MEDS: IPRATROPIUM BROM 0.5 MG/2.5ML INH SOL NEB SCH (14:56)
[2025-03-14] MEDS: ALBUTEROL SULF 2.5 MG/0.5ML(0.5%) NEB SOLN NEB SCH (14:56)
[2025-03-15] VITALS (19 sets, daily range): BP systolic 130–155; BP diastolic 84–91; PULSE 69–103; RESP 16–21; TEMP 97.5–99.7; O2SAT 94–100
[2025-03-15 07:29] LABS: Hematocrit 43.8 % (41.0-53.0); Hemoglobin 15.4 g/dL (13.5-17.5); Mean Corpuscular Hemoglobin 35.7 pg (28.0-32.0); Mean Corpuscular Volume 101.8 fL (80.0-100.0); Nucleated Red Blood Cells % 0.2 %
[2025-03-15 07:30] LABS: Anion Gap 8 (5-15); Carbon Dioxide 25 mmol/L (20-31); Potassium 3.7 mmol/L (3.5-5.1); Sodium 141 mmol/L (136-145)
[2025-03-15 07:31] LABS: Calcium 8.7 mg/dL (8.7-10.4)
[2025-03-15 07:32] LABS: Chloride 108 mmol/L (98-107)
[2025-03-15 07:36] LABS: BUN/Creatinine Ratio 25.8 (10.0-20.0); Blood Urea Nitrogen 17 mg/dL (9-23); Glucose 94 mg/dL (74-106)
[2025-03-15] MEDS: REGADENOSON 0.4 MG/5 ML SYRG IV ONE ×2 (08:19→08:32)
[2025-03-15] MEDS: cefTRIAXone 1GM/50ML D5W 50 ML IV SCH (09:57)
[2025-03-15] MEDS: FUROSEMIDE 40 MG/4 ML VIAL IV SCH (09:58)
[2025-03-15] MEDS ORDERED: BENA-25 PO (13:20)
[2025-03-15] MEDS: hydroCHLOROthiazide 25 MG TAB PO ONE (13:30)
--- NOTE | 2025-03-15 14:45 | DVHINCON2 ---
GI Consult Consult Note GI consult note Date of Consultation: 03/15/2025 Chief Complaint: Cirrhosis with ascites Referring Physician: Dr. Christopher H&P: 69-year-old male with past medical history of hypertension, diabetes, COPD, MA and CHF presented to ER with complains of chest pain. Patient denies abdominal pain. Has nausea denies vomiting no hematemesis. No melena or red blood in stool. Patient admits to drinking alcohol for the last few days. No EGD or c olonoscopy in past. Denies history of hepatitis Past Medical History: CAD, CHF, HTN, MA, hyperipidemia, Other (Stent placement RCA 2016 [facility]) Past Surgical History: Other (Right lung resection), Total hip replacement (Right) Social History: NO smoking, +drinking ETOH Family History: Noncontributory Review of Systems: Constitutional: no fever, chill, weight loss HEENT: no eye pain, no hearing loss, no oral lesion, no scleral icterus Heart: no chest pain, no chest pressure Lung: no cough, no dyspnea with exertion Abdomen: see HPI Physical exam: General: NAD, AAOX3 Chest: lung reyes clear to auscultation Heart: RRR, no murmur Abdomen: Moderate-distended, +BS Extremities: no edema Labs: Labs Test 03/15/25 06:23 03/14/25 13:00 03/14/25 12:23 03/14/25 06:17 Range/Units White Blood Count 6.8 4.4-10.8 10^3/uL Red Blood Count 4.31 L 4.5-5.90 10^6/uL Hemoglobin 15.4 13.5-17.5 g/dL Hematocrit 43.8 41.0-53.0 % Mean Corpuscular Volume 101.8 H 80.0-100.0 fL Mean Corpuscular Hemoglobin 35.7 H 28.0-32.0 pg Mean Corpuscular Hemoglobin Concent 35.1 32.0-36.0 g/dL Red Cell Distribution Width 14.5 H 11.8-14.3 % Platelet Count 90 L 140-450 10^3/uL Mean Platelet Volume 9.8 6.9-10.8 fL Neutrophils (%) (Auto) 75.7 37.0-80.0 % Lymphocytes (%) (Auto) 10.4 10.0-50.0 % Monocytes (%) (Auto) 9.8 0.0-12.0 % Eosinophils (%) (Auto) 3.7 0.0-7.0 % Basophils (%) (Auto) 0.4 0.0-2.0 % Neutrophils # (Auto) 5.1 1.6-8.6 10 ^3/uL Lymphocytes # (Auto) 0.7 0.4-5.4 10 ^3/uL Monocytes # (Auto) 0.7 0-1.3 10 ^3/uL Eosinophils # (Auto) 0.3 0-0.8 10 ^3/uL Basophils # (Auto) 0 0-0.2 10 ^3/uL Nucleated Red Blood Cells 0.2 % Sodium Level 141 136-145 mmol/L Potassium Level 3.7 3.5-5.1 mmol/L Chloride Level 108 H 98-107 mmol/L Carbon Dioxide Level 25 20-31 mmol/L Anion Gap 8 5-15 Blood Urea Nitrogen 17 9-23 mg/dL Creatinine 0.66 L 0.700-1.30 mg/dL Glomerular Filtration Rate Calc 103 >90 mL/min BUN/Creatinine Ratio 25.8 H 10.0-20.0 Serum Glucose 94 74-106 mg/dL Calcium Level 8.7 8.7-10.4 mg/dL Urine Color Yellow Yellow Urine Clarity Clear Clear Urine pH 6.0 5.0-9.0 Urine Specific Nucla 1.028 1.001-1.035 Urine Protein Negative Negative Urine Ketones Negative Negative Urine Blood Negative Negative /uL Urine Nitrite Negative Negative Urine Bilirubin Negative Negative Urine Urobilinogen Normal Negative mg/dL Urine Leukocyte Esterase Negative Negative /uL Urine RBC <1 0 - 3 /hpf Urine Microscopic WBC 1 0-3 /HPF Urine Squamous Epithelial Cells None seen <5 /hpf Urine Bacteria None seen None Seen /hpf Urine Mucus Few None Seen Urine Glucose Normal Normal mg/dL Urine Opiates Screen Neg NEGATIVE Urine Fentanyl Screen Neg NEGATIVE Urine Barbiturates Screen Neg NEGATIVE Urine Phencyclidine Screen Neg NEGATIVE Urine Amphetamines Screen Neg NEGATIVE Urine Benzodiazepines Screen Neg NEGATIVE Urine Cocaine Screen Neg NEGATIVE Urine Cannabinoids Screen Neg NEGATIVE Troponin I High Sensitivity 181 *H </=54 ng/L Prothrombin Time 13.5 H 9.3-11.8 sec Prothrombin Time INR 1.31 H 0.9-1.15 Activated Partial Thromboplast Time 29.8 24.5-34.5 SEC Total Bilirubin 0.9 0.2-1.0 mg/dL Aspartate Amino Transferase (AST) 59 H 13-40 U/L Alanine Aminotransferase (ALT) 58 H 7-40 U/L Alkaline Phosphatase 134 H 46-116 U/L Total Protein 5.8 5.7-8.2 g/dL Albumin 2.8 L 3.2-4.8 g/dL Thyroid Stimulating Hormone (TSH) 1.75 0.55-4.78 uIU/mL Hepatitis A Antibody Total Positive H Negative Hepatitis B Surface Antigen Negative Negative Hepatitis B Surface Antibody Positive H Negative Hepatitis B Core Total Antibody Positive H Negative Hepatitis C Antibody Negative Negative Test 03/13/25 20:30 Range/Units Hemoglobin A1c 5.2 <5.7 % A1C B-Type Natriuretic Peptide 58.15 0-100 pg/mL Triglycerides Level 130 < 150 mg/dL Cholesterol Level 146 < 200 mg/dL LDL Cholesterol 73 < 100 mg/dL HDL Cholesterol 48 40-59 mg/dL Imaging: Liver ultrasound Impression: Cirrhotic morphology liver and moderate volume of ascites fluid. Hepatomegaly. Gallbladder distention. Gallbladder sludge. A 9 mm nonobstructing right renal calculus Assessment: Chest pain/NSTEMI Liver cirrhosis Ascites Transaminitis Alcohol use Plan: Discussed with Dr. Mcgowan IR consult for paracentesis DC alcohol discussed extensively Monitor lab Ammonia level Protonix and Carafate Thank you for this consult Date of Service: Mar 15, 2025 Billing Provider: KATIE DINH Common Visit Codes: CONSULT ONLY Consultation Codes: [id number] CONSULT <60MIN KATIE DINH Mar 15, 2025 14:45
--- NOTE | 2025-03-15 17:51 | DVHPNRES ---
Progress Note Date Seen: Mar 15, 2025 Resident Creating Document: TOMAS RAMOS Medical Necessity Reason Pt with a Central, PICC or Fol: No Subjective Review of Systems Patient is a 69 years old male with past medical history of hypertension, diabetic mellitus type 2, COPD, stroke x2, CAD, [place] s/p PCI 1xDES to RCA @ [facility], [facility], presents with chest pain. Patient describes the pain started 4 days ago, pressure-like, radiate to both arms, associated with nausea, dizziness and shortness of breath. Chest pain gets worse when he walk and it gets better after taking Aspirin, Nitroglycerin. According to the patient, he has been having chest pain on exertion/eating off and on for the past couple years, however, over the last 4 days he has noticed worsening of the chest pain which is what prompted this visit to the hospital. Initial twelve lead electrocardiogram reveals normal sinus rhythm with baseline wander. Repeat EKGs to not show any significant ST segment changes. Initial troponin level of 47ng/L with up trend and peak level at 124ng/L. Patient reports he has not followed up with a frozen meat cutter since his stent placement and only underwent one stress test in 2017 which was negative. Past medical history: coronary artery disease status post PTCA and stenting to mid RCA in 2016, hypertension, dyslipidemia, myocardial infarction, empyema with right lower lobe resection, GERD, and morbid obesity Past surgical history: Right lung resection, total hip replacement Social & Personal history: Denies smoking. Denies drugs. Drinks alcohol 50 years, since he was 19. 03/15/2025: Patient seen and examined at bedside. Patient reports that he has been drinking alcohol for the past 50 years. Today, patient complains with chest pain related food intake. Patient underwent stress test and currently waiting for the results. Today, patient denies fever, chills, constipation. Abdomen is moderately distended and positive bowel sound. Patient received a GI consult, GI consulted IR for paracentesis for Ascites. Ammonia is 114, started PO lactulose 15 mg to target 2-3 bowel movement daily. Objective vital signs Vital Sign Date Time Temp Pulse Resp B/P (MAP) Pulse Ox O2 Delivery O2 Flow Rate FiO2 03/15/25 15:16 76 18 144/80 03/15/25 14:01 99 03/15/25 13:55 Room Air 0.0 03/15/25 13:55 21 03/15/25 12:39 98.5 98.5 Total Intake and Output 03/14/25 03/14/25 03/15/25 15:00 23:00 07:00 Intake Total 50 ml 720 ml Output Total 300 ml 800 ml Balance -250 ml -800 ml 720 ml medications Current Medications Medications Dose Ordered Sig/Kevin Route Start Time Stop Time Status Last Admin Dose Admin Morphine Sulfate 2 mg Q4HPRN PRN IV 03/13/25 23:30 03/15/25 14:46 2 MG Nitroglycerin 0.4 mg Q5MINP PRN SL 03/13/25 23:30 Morphine Sulfate 2 mg Q30M PRN IV 03/13/25 23:30 UNV Pantoprazole Sodium 40 mg DAILY@0600 PO 03/14/25 06:00 03/15/25 06:25 40 MG Aspirin 81 mg DAILY PO 03/14/25 10:00 03/14/25 10:19 81 MG Atorvastatin Calcium 40 mg DAILY PO 03/14/25 10:00 03/15/25 10:03 40 MG Ceftriaxone Sodium 50 ml @ 100 mls/hr DAILY@09 IV 03/15/25 09:00 03/15/25 09:57 100 MLS/HR Furosemide 40 mg DAILY IV 03/15/25 10:00 03/15/25 09:58 40 MG Ipratropium [place] 0.5 mg Q4HWA [facility] 03/14/25 14:00 03/15/25 13:55 0.5 MG Albuterol 2.5 mg Q4H [facility] 03/14/25 13:30 03/15/25 13:55 2.5 MG Hydrochlorothiazide 12.5 mg DAILY PO 03/16/25 10:00 Sucralfate 1 gm BID@0600,2200 PO 03/15/25 22:00 Examination General Appearance: Cooperative. Well developed. Well nourished. NAD Head Exam: Normal inspection Neck Exam: Normal inspection. Non-tender. Normal alignment Pulmonary/Respiratory: Chest non-tender. Course bilateral breath sounds, decreased breath sounds on the right versus left. no crackles, no wheezing. Cardiovascular/Chest: Regular rate and rhythm. No murmurs. No JVD. Peripheral Pulses: 2+ Radial (R). 2+ Radial (L). 2+ Pedal (R). 2+ Pedal (L) Abdominal Exam: bowel sounds. Moderate-distened. Soft. no visible veins, Nontender. No hepatospenomegaly. No masses Lower extremities: 2+ lower extremity edema Neuro/Mental Status: A&O x4. Coherent. Thoughts/Psych: Normal thought pattern. Appropriate mood and affect. Good judgement and insight Skin Exam: Normal inspection. Normal color. Warm. Dry laboratory and microbiology Laboratory Tests 03/15/25 06:23 Test 03/15/25 06:23 Range/Units Serum Glucose 94 74-106 mg/dL Labs and/or images reviewed: Labs reviewed by me, Image(s) reviewed by me Problem List/Assessment/Plan Problem List/Assessment/Plan #Chest pain, NSTEMI type 1 vs 2 -Morphine 2mg IV -Nitroglycerin 0.4mg -EKG -Troponins 95 > 124 > 181 -ECHO -Cardiology consult -Stress test # transaminitis likely due to liver cirrhosis, compensated. Meld 9 -AST 59 H, ALT 58 H, ALP 134 H, Albumin 2.8 L -Hepatitis A Ab Total: Positive H. Hep Bs Antibody: Positive H. Hep B Core Total Ab: Positive H -Liver US- Cirrhotic morphology liver and moderate volume of ascites fluid. Hepatomegaly. Gallbladder distention. Gallbladder sludge. A 9 mm nonobstructing right renal calculus -GI consult -Ammonia 114 -continue Lactulose 15 mg PO daily -Paracentesis performed # acute hypoxic respiratory failure, on 2 L O2 NC # COPD exacerbation # possible Penumonia -Hx Lung lobe resection -Chest X-ray- Right basilar airspace disease. Pneumonia is not ruled out. Irregularity of multiple right-sided ribs, possibly secondary to prior thoracic surgery. Correlate clinically. No acute rib fracture is identified. - ipratropium and albuterol med nebs - IV ceftriaxone # probable acute on Chronic CHF, systolic versus diastolic -Lasix 20 mg IV - ordered echocardiogram #Status post [place] with Stent placement (RCA) -Aspirin 81mg po -Atorvastatin 40mg po #Hypertension, blood pressure currently soft - holding home antihypertensive benazepril-thiazide Cardiac diet PUD prophylaxis: protonix 40mg DVT prophylaxis: Levonox 40mg Goals of care: Full code, discussed for >16 minutes on 03/15/25 Plan discussed with patient Plan discussed with Dr. Whittaker Plan discussed with: Patient, Other (RN) My Orders My Orders Orders - TOMAS RAMOS Procedure Category Date Status Time * Gi D[facility] Senior Policy Advisor CONS 03/15/25 Transmitted 12:28 Date of Service: Mar 15, 2025 Billing Provider: FLAVIA WHITTAKER MD Common Visit Codes: [id number] INP/OBS CARE(HIGH) TOMAS RAMOS RESIDENT Mar 15, 2025 17:51 TIM BOURGEOIS RESIDENT Mar 15, 2025 19:19 FLAVIA WHITTAKER MD Mar 17, 2025 20:29
--- NOTE | 2025-03-15 17:52 | DVHSR ---
APPROVED REPORT EXAM: Two-dimensional and M-mode echocardiogram with Doppler and color Doppler. Blood Pressure: 130/79 mmHg INDICATION ACS History of previous stent RISK FACTORS Obesity: Height: 6' , Weight: 300 DIMENSIONS LVDd5.2 (3.8-5.7cm)LA (2D)4.2 (1.9-4.0cm)Aortic Root3.5 (2.0-3.7cm) LVDs3.5 (2.5-4.0cm)LA (MM) (1.9-4.0cm)Aortic Cusp Exc1.5 (1.5-2.0cm) EF (%) 57.0 (55-70%)Rt. Atrium4.6 (1.9-4.0cm)Asc. Aorta cm IVSd1.0 (0.7-1.1cm)RV (D) (1.8-2.4cm) PWd0.9 (0.7-1.1cm) Mitral Valve MitralMitral Stenosis E wave1.00m/sMV Mean GR.mmHg A wave1.00m/sMV Peak GR.mmHg E/A ratio1.02D MVAcm2 Aortic Valve Aortic ValveAortic Stenosis V11.10m/Denilson Mean GR.5mmHg V21.50m/Denilson Peak GR.10mmHg LVOT Diameter2.2 (1.8-2.4cm)Doppler AVA2.79cm2 Pulmonic Valve V20.80m/s Tricuspid Valve TR Velocity2.50m/s [id number] Conclusion Sinus rhythm. Biatrial enlargement. Concentric LVH Valves are normal. EF of 60% with normal RV function. Dopplers unremarkable. No pericardial effusion masses or vegetations.
[2025-03-15] MEDS: LACTULOSE 20Gm/30ML SOLN PO ONE (18:39)
[2025-03-15] MEDS: SUCRALFATE 1 GM/10 ML ORAL SUSP PO SCH (22:41)
[2025-03-16] VITALS (20 sets, daily range): BP systolic 114–147; BP diastolic 73–94; PULSE 71–89; RESP 17–20; TEMP 97.8–99.6; O2SAT 93–100
[2025-03-16 07:37] LABS: Hematocrit 42.3 % (41.0-53.0); Hemoglobin 14.9 g/dL (13.5-17.5); Mean Corpuscular Hemoglobin 35.8 pg (28.0-32.0); Mean Corpuscular Volume 101.9 fL (80.0-100.0); Nucleated Red Blood Cells % 0.3 %
[2025-03-16 07:40] LABS: Potassium 4.0 mmol/L (3.5-5.1); Sodium 139 mmol/L (136-145)
[2025-03-16 07:41] LABS: Anion Gap 7 (5-15); Carbon Dioxide 24 mmol/L (20-31); Chloride 108 mmol/L (98-107)
[2025-03-16 07:43] LABS: Calcium 8.7 mg/dL (8.7-10.4)
[2025-03-16 07:46] LABS: BUN/Creatinine Ratio 27.9 (10.0-20.0); Blood Urea Nitrogen 17 mg/dL (9-23); Glucose 91 mg/dL (74-106)
--- NOTE | 2025-03-16 08:02 | ECG ---
[facility] Test Date: 2025-03-14 Test Time: 19:30:01 Pat Name: BHUMI TORRES Department: Respiratoy Room: 0223T B Gender: M Sharples Machine Operator: JOSELYN : 1955 Requested By: TOMAS YOU Order Number: [id number] Reading MD: Dwaine Lima Measurements Intervals [place] Rate: 77 P: 11 KS: 141 QRS: 15 QRSD: 100 T: 3 QT: 410 QTc: 465 Interpretive Statements Sinus rhythm Abnormal R-wave progression, early transition Electronically Signed On 03-19-2025 21:37:58 PDT by Dwaine Lima Please click the below link to view image of tracing.
--- NOTE | 2025-03-16 09:12 | DVH ---
PROCEDURE: Ultrasound-guided paracentesis Procedural Personnel Attending physician(s): Wilmer Johnson Fellow physician(s): None Resident physician(s): None Advanced practice provider(s): None Pre-procedure diagnosis: Ascites Post-procedure diagnosis: Same Indication: PARACENTESIS Additional clinical history: None Complications: No immediate complications. IMPRESSION: Ultrasound-guided paracentesis with drainage of 6900 mL of serous fluid. Plan: Resume care by clinical team. PROCEDURE SUMMARY: - Ultrasound-guided paracentesis - Additional procedure(s): None PROCEDURE DETAILS: Pre-procedure Consent: Informed consent for the procedure including risks, benefits and alternatives was obtained a nd time-out was performed prior to the procedure. Preparation: The site was prepared and draped using maximal sterile barrier technique including cutan eous antisepsis. Anesthesia/sedation Level of anesthesia/sedation: No sedation Anesthesia/sedation administered by: Not applicable Total intra-service sedation time (minutes): Not applicable Initial abdominal ultrasound Initial abdominal ultrasound was performed. Findings: Large ascites. Paracentesis Local anesthesia was administered. A safe window for paracentesis was identified with ultrasound. The peritoneal cavity was accessed and fluid return confirmed position. Ascites was drained. The cathete r was removed and a sterile dressing was applied. Catheter size (Fr):5 Fluid appearance: serous Volume drained (mL): 6900 Post-drainage ultrasound: No visible ascites Albumin Administration Grams of albumin given intravenously: None Additional Details Additional description of procedure: None Registry event: V/3/f Device used: None Equipment details: None Specimens removed: Aspirated fluid was sent for analysis. Estimated blood loss (mL): Less than 10 Standardized report: [email or web address] Attestation Signer name: Wilmer Johnson I attest that I was present for the entire procedure. I reviewed the stored images and agree with the report as written.
[2025-03-16] MEDS: LACTULOSE 20Gm/30ML SOLN PO SCH ×2 (09:31→22:17)
[2025-03-16] MEDS: hydroCHLOROthiazide 25 MG TAB PO SCH (10:27)
--- NOTE | 2025-03-16 15:58 | DVHPNRES ---
Progress Note Date Seen: Mar 16, 2025 Resident Creating Document: TOMAS RAMOS Medical Necessity Reason Pt with a Central, PICC or Fol: No Subjective Review of Systems Patient is a 69 years old male with past medical history of hypertension, diabetic mellitus type 2, COPD, stroke x2, CAD, [place] s/p PCI 1xDES to RCA @ [facility] [place], presents with chest pain. Patient describes the pain started 4 days ago, pressure-like, radiate to both arms, associated with nausea, dizziness and shortness of breath. Chest pain gets worse when he walk and it gets better after taking Aspirin, Nitroglycerin. According to the patient, he has been having chest pain on exertion/eating off and on for the past couple years, however, over the last 4 days he has noticed worsening of the chest pain which is what prompted this visit to the hospital. Initial twelve lead electrocardiogram reveals normal sinus rhythm with baseline wander. Repeat EKGs to not show any significant ST segment changes. Initial troponin level of 47ng/L with up trend and peak level at 124ng/L. 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 Past medical history: coronary artery disease status post PTCA and stenting to mid RCA in 2016, hypertension, dyslipidemia, myocardial infarction, empyema with right lower lobe resection, GERD, and morbid obesity Past surgical history: Right lung resection, total hip replacement Social & Personal history: Denies smoking. Denies drugs. Drinks alcohol 50 years, since he was 19. 03/15/2025: Patient seen and examined at bedside. Patient reports that he has been drinking alcohol for the past 50 years. Today, patient complains with chest pain related food intake. Patient underwent stress test and currently waiting for the results. Today, patient denies fever, chills, constipation. Abdomen is moderately distended and positive bowel sound. Patient received a GI consult and underwent paracentesis for Ascites. Ammonia is 114, started PO lactulose 15 mg to target 2-3 bowel movement daily. 03/16/2025: Patient still complains about chest pain especially when he swallow food. Ultrasound-guided paracentesis with drainage of 6900 mL of serous fluid. Ammonia is 125, continue PO lactulose 15 mg to target 2-3 bowel movement daily. Patient underwent stress test yesterday and still waiting for the results. P eritoneal fluid- Fluid WBC: 419 H, PMN 10 Objective vital signs Vital Sign Date Time Temp Pulse Resp B/P (MAP) Pulse Ox O2 Delivery O2 Flow Rate FiO2 03/16/25 14:26 81 18 137/82 03/16/25 12:30 98.0 96 98.0 03/16/25 09:51 Room Air 03/16/25 09:51 0 21 Total Intake and Output 03/15/25 03/15/25 03/16/25 15:00 23:00 07:00 Intake Total 50 ml 1400 ml 800 ml Output Total 200 ml Balance 50 ml 1400 ml 600 ml medications Current Medications Medications Dose Ordered Sig/Kevin Route Start Time Stop Time Status Last Admin Dose Admin Morphine Sulfate 2 mg Q4HPRN PRN IV 03/13/25 23:30 03/16/25 13:56 2 MG Nitroglycerin 0.4 mg Q5MINP PRN SL 03/13/25 23:30 Morphine Sulfate 2 mg Q30M PRN IV 03/13/25 23:30 UNV Pantoprazole Sodium 40 mg DAILY@0600 PO 03/14/25 06:00 03/16/25 06:01 40 MG Aspirin 81 mg DAILY PO 03/14/25 10:00 03/14/25 10:19 81 MG Atorvastatin Calcium 40 mg DAILY PO 03/14/25 10:00 03/16/25 10:28 40 MG Ceftriaxone Sodium 50 ml @ 100 mls/hr DAILY@09 IV 03/15/25 09:00 03/16/25 09:31 100 MLS/HR Furosemide 40 mg DAILY IV 03/15/25 10:00 03/16/25 10:27 40 MG [facility]atropium [place] [facility] [place] 03/14/25 14:00 03/16/25 09:51 0.5 MG Albuterol 2.5 mg Q4H NEB 03/14/25 13:30 03/16/25 09:51 2.5 MG Hydrochlorothiazide 12.5 mg DAILY PO 03/16/25 10:00 03/16/25 10:27 12.5 MG Sucralfate 1 gm BID@0600,2200 PO 03/15/25 22:00 03/16/25 06:01 1 GM Lactulose 30 ml BID PO 03/16/25 22:00 UNV Examination General Appearance: Cooperative. Well developed. Well nourished. In mild distress Head Exam: Normal inspection Neck Exam: Normal inspection. Non-tender. Normal alignment Pulmonary/Respiratory: Chest non-tender. Clear bilateral breath sounds, no crackles, no wheezing. Cardiovascular/Chest: Regular rate and rhythm. No murmurs. Abdominal Exam: Normal bowel sounds. Soft. Distended abdomen with shifting dullness noted, Nontender. No hepatospenomegaly. No masses Lower extremities: Trace lower extremity edema Neuro/Mental Status: A&O x4. Coherent. Thoughts/Psych: Normal thought pattern. Appropriate mood and affect. Good judgement and insight Skin Exam: Normal inspection. Normal color. Warm. Dry laboratory and microbiology Laboratory Tests 03/16/25 06:31 Test 03/16/25 06:31 Range/Units Serum Glucose 91 74-106 mg/dL Labs and/or images reviewed: Labs reviewed by me, Image(s) reviewed by me (RN) Problem List/Assessment/Plan Problem List/Assessment/Plan #Chest pain, NSTEMI type 1 vs 2 -Morphine 2mg IV -Nitroglycerin 0.4mg -EKG -Troponins 95 > 124 > 181 -ECHO: Biatrial enlargement. Concentric LVH. Valves are normal. EF of 60% with normal RV function. Dopplers unremarkable -Cardiology consult -Stress test # transaminitis likely due to liver cirrhosis, compensated. Meld 9 -AST 59 H, ALT 58 H, ALP 134 H, Albumin 2.8 L -Hepatitis A Ab Total: Positive H. Hep Bs Antibody: Positive H. Hep B Core Total Ab: Positive H -Liver US- Cirrhotic morphology liver and moderate volume of ascites fluid. Hepatomegaly. Gallbladder distention. Gallbladder sludge. A 9 mm nonobstructing right renal calculus -GI consult -Ammonia 114>125 -continue Lactulose 15 mg PO daily -Ultrasound-guided paracentesis performed- drainage of 6900 mL of serous fluid. -Peritoneal fluid- Fluid WBC- 419 H # acute hypoxic respiratory failure, on 2 L O2 NC # COPD exacerbation # possible Penumonia -Hx Lung lobe resection -Chest X-ray- Right basilar airspace disease. Pneumonia is not ruled out. Irregularity of multiple right-sided ribs, possibly secondary to prior thoracic surgery. Correlate clinically. No acute rib fracture is identified. - ipratropium and albuterol med nebs - IV ceftriaxone # probable acute on Chronic CHF, systolic versus diastolic -Lasix 20 mg IV - ordered echocardiogram #Status post [place] with Stent placement (RCA) -Aspirin 81mg po -Atorvastatin 40mg po #Hypertension, blood pressure currently soft - holding home antihypertensive benazepril-thiazide Cardiac diet PUD prophylaxis: protonix 40mg DVT prophylaxis: Levonox 40mg Goals of care: Full code, discussed for >16 minutes on 03/16/25 Plan discussed with patient Plan discussed with Dr. Whittaker Plan discussed with: Patient, Other My Orders My Orders Orders - TOMAS RAMOS RESIDENT Procedure Category Date Status Time Paracentesis US 03/16/25 Resulted Date of Service: Mar 16, 2025 Billing Provider: FLAVIA WHITTAKER MD Common Visit Codes: [id number] INP/OBS CARE(HIGH) TOMAS RAMOS RESIDENT Mar 16, 2025 15:58 TIM BOURGEOIS RESIDENT Mar 16, 2025 20:08 FLAVIA WHITTAKER MD Mar 17, 2025 20:30
--- NOTE | 2025-03-16 17:47 | DVHPN2 ---
Progress Note Date Seen: Mar 16, 2025 Resident Creating Document: CIARRA LINDSAY RESIDENT Has the PT tested + for MRSA If YES, has PT been informed?: No Medical Necessity Reason Pt with a Central, PICC or Fol: No Subjective Review of Systems 03/16/25 The patient is a 69-year-old male with a history of alcohol-related cirrhosis, chronic hepatitis B (Hep B core Ab positive, surface Ab positive), CAD s/p PCI to RCA (2015), [place], COPD, and morbid obesity, who presented with chest pain radiating to both arms, associated with nausea, dizziness, and shortness of breath. Chest pain worsens with exertion and eating, relieved by nitroglycerin and aspirin. He also has a long history of alcohol use (50 years). Over the past 4 days, chest pain has intensified, prompting hospital admission. Initial troponin was 47 ng/L with a peak at 124 ng/L, suggesting possible NSTEMI. EKG showed sinus rhythm without ST-segment changes. The patient underwent a stress test on 03/14/25, awaiting results. GI Status: * Underwent ultrasound-guided paracentesis on 03/16/25 with removal of 6.9 L serous fluid, improved abdominal distension. * Denies current abdominal pain, nausea, vomiting, hematemesis, or melena. * Last bowel movement: yesterday. * Reports persistent intense left shoulder pain. * Tolerating PO diet, feeds via oral route. * Receiving lactulose 30 mL PO BID, achieving 23 bowel movements daily. * Receiving ceftriaxone IV for SBP prophylaxis. * Alcohol cessation counseling provided. Todays Progress / New Data * Labs: * Ammonia: 125 (elevated). * LDH: 323 (high). * CBC: Pancytopenia WBC 7.0, Hgb 14.9, Plt 87K, macrocytosis (MCV 101.9). * Coagulation: PT 13.5 (elevated), INR 1.31. * Chemistry: Normal creatinine (0.61), GFR 105, normal sodium/potassium. * Troponin: Elevated. * Peritoneal fluid: WBC 419 (PMN 10%), RBC 1629, pH 9.0 not consistent with SBP. * Ultrasound: Cirrhotic morphology, hepatomegaly (liver 17.2 cm), moderate ascites, gallbladder sludge and distention, 9 mm non-obstructing right renal calculus, no CBD dilation, portal vein normal. * CXR: Right basilar airspace disease (pneumonia not ruled out), right rib irregularity (likely prior thoracic surgery). * Echo: EF 60%, concentric LVH, biatrial enlargement, no pericardial effusion. Objective vital signs Vital Sign Date Time Temp Pulse Resp B/P (MAP) Pulse Ox O2 Delivery O2 Flow Rate FiO2 03/16/25 16:59 98.0 75 19 120/80 (93) 95 98.0 03/16/25 09:51 Room Air 03/16/25 09:51 0 21 Total Intake and Output 03/15/25 03/15/25 03/16/25 15:00 23:00 07:00 Intake Total 50 ml 1400 ml 800 ml Output Total 200 ml Balance 50 ml 1400 ml 600 ml medications Current Medications Medications Dose Ordered Sig/Kevin Route Start Time Stop Time Status Last Admin Dose Admin Morphine Sulfate 2 mg Q4HPRN PRN IV 03/13/25 23:30 03/16/25 13:56 2 MG Nitroglycerin 0.4 mg Q5MINP PRN SL 03/13/25 23:30 Morphine Sulfate 2 mg Q30M PRN IV 03/13/25 23:30 UNV Pantoprazole Sodium 40 mg DAILY@0600 PO 03/14/25 06:00 03/16/25 06:01 40 MG Aspirin 81 mg DAILY PO 03/14/25 10:00 03/14/25 10:19 81 MG Atorvastatin Calcium 40 mg DAILY PO 03/14/25 10:00 03/16/25 10:28 40 MG Ceftriaxone Sodium 50 ml @ 100 mls/hr DAILY@09 IV 03/15/25 09:00 03/16/25 09:31 100 MLS/HR Furosemide 40 mg DAILY IV 03/15/25 10:00 03/16/25 10:27 40 MG Ipratropium [place] 0.5 mg Q4HWA NEB 03/14/25 14:00 03/16/25 09:51 0.5 MG Albuterol 2.5 mg Q4H NEB 03/14/25 13:30 03/16/25 09:51 2.5 MG Hydrochlorothiazide 12.5 mg DAILY PO 03/16/25 10:00 03/16/25 10:27 12.5 MG Sucralfate 1 gm BID@0600,2200 PO 03/15/25 22:00 8/1/25 06:01 1 GM Lactulose 30 ml BID PO 03/16/25 22:00 Examination * General: Alert, mild distress from shoulder pain. * Abdomen: Soft, distended but improved post-paracentesis; positive bowel sounds. * Extremities: No edema. * Neuro: No asterixis. laboratory and microbiology Laboratory Tests 03/16/25 06:31 Test 03/16/25 06:31 Range/Units Serum Glucose 91 74-106 mg/dL Problem List/Assessment/Plan Problem List/Assessment/Plan Assessment 1. Decompensated cirrhosis with ascites, coagulopathy, thrombocytopenia, and hyperammonemia. MELD score ?9. 2. Ascites s/p large-volume paracentesis (6.9 L), no SBP. 3. Gallbladder sludge and distention no acute cholecystitis. 4. Hepatic encephalopathy risk ammonia elevated, currently on lactulose. 5. Alcohol-related liver disease ongoing alcohol use. 6. Macrocytic anemia, thrombocytopenia likely from liver disease and alcohol. 7. Chronic hepatitis B core Ab positive, surface Ab positive, surface antigen negative (resolved infection). GI Plan Hepatic/Ascites * Continue lactulose 30 mL PO BID, titrate to 23 BMs/day. * Albumin infusion post-paracentesis (>5L removed) to prevent paracentesis- induced circulatory dysfunction. * Start spironolactone 100 mg daily + furosemide 40 mg daily (monitor BP, electrolytes, renal function). * Low sodium diet, daily weights, strict I/O. Infection Prophylaxis * Continue ceftriaxone IV (as SBP prophylaxis). * Monitor peritoneal fluid culture (pending). Hepatic Encephalopathy * Maintain lactulose; consider rifaximin if mental status worsens. * Monitor ammonia and neuro status daily. Gallbladder Sludge * Monitor clinically; no acute cholecystitis. * Repeat imaging if symptoms develop. Nutrition * Continue PO feeds. * Recommend high-protein, low-sodium diet. * Nutritional support with thiamine, folate due to alcohol use. Surveillance * Recommend EGD for variceal screening (as outpatient). * Ultrasound with AFP every 6 months for HCC surveillance. Protonix and Carafate Case discussed in detail with the attending physician, including the clinical presentation, diagnostic workup, and comprehensive management plan. The patient was present for the discussion and demonstrated understanding of his condition and the proposed plan. Plan discussed with: Patient CIARRA LINDSAY RESIDENT Mar 16, 2025 17:47
[2025-03-17] VITALS (21 sets, daily range): BP systolic 110–151; BP diastolic 60–93; PULSE 65–95; RESP 16–20; TEMP 98.1–98.8; O2SAT 92–100
[2025-03-17 06:42] LABS: Hematocrit 44.0 % (41.0-53.0); Hemoglobin 15.3 g/dL (13.5-17.5); Mean Corpuscular Hemoglobin 35.3 pg (28.0-32.0); Mean Corpuscular Volume 101.6 fL (80.0-100.0); Nucleated Red Blood Cells % 0.1 %
[2025-03-17 06:45] LABS: Anion Gap 7 (5-15); Carbon Dioxide 25 mmol/L (20-31); Chloride 106 mmol/L (98-107); Potassium 3.8 mmol/L (3.5-5.1); Sodium 138 mmol/L (136-145)
[2025-03-17 06:51] LABS: BUN/Creatinine Ratio 23.9 (10.0-20.0); Blood Urea Nitrogen 17 mg/dL (9-23); Glucose 101 mg/dL (74-106)
[2025-03-17 06:54] LABS: Calcium 8.4 mg/dL (8.7-10.4)
--- NOTE | 2025-03-17 11:37 | DVHPN2 ---
Progress Note - Dictate Date Seen: Mar 17, 2025 Has the PT tested + for MRSA If YES, has PT been informed?: No Medical Necessity Reason Pt with a Central, PICC or Fol: No Subjective Over the past 4 days, chest pain has intensified, prompting hospital admission. Initial troponin was 47 ng/L with a peak at 124 ng/L, suggesting possible NSTEMI. EKG showed sinus rhythm without ST-segment changes. The patient underwent a stress test on 03/14/25 GI Status: * Underwent ultrasound-guided paracentesis on 03/16/25 with removal of 6.9 L serous fluid, improved abdominal distension. * Denies current abdominal pain, nausea, vomiting, hematemesis, or melena. * Last bowel movement: yesterday. * Reports persistent intense left shoulder pain. * Tolerating PO diet, feeds via oral route. Ammonia level rising from 110-125 * Receiving lactulose 30 mL PO BID, achieving 23 bowel movements daily. * Receiving ceftriaxone IV for SBP prophylaxis. * Alcohol cessation counseling provided. vital signs Vital Sign Date Time Temp Pulse Resp B/P (MAP) Pulse Ox O2 Delivery O2 Flow Rate FiO2 03/17/25 10:34 69 18 99 03/17/25 10:07 121/76 03/17/25 09:00 98.1 98.1 03/17/25 06:37 Room Air 03/17/25 06:37 0 21 Total Intake and Output 03/16/25 03/16/25 03/17/25 15:00 23:00 07:00 Intake Total 50 ml 850 ml 700 ml Output Total 600 ml Balance 50 ml 850 ml 100 ml medications Current Medications Medications Dose Ordered Sig/Kevin Route Start Time Stop Time Status Last Admin Dose Admin Morphine Sulfate 2 mg Q4HPRN PRN IV 03/13/25 23:30 03/17/25 06:01 2 MG Nitroglycerin 0.4 mg Q5MINP PRN SL 03/13/25 23:30 Morphine Sulfate 2 mg Q30M PRN IV 03/13/25 23:30 UNV Pantoprazole Sodium 40 mg DAILY@0600 PO 03/14/25 06:00 03/17/25 05:52 40 MG Aspirin 81 mg DAILY PO 03/14/25 10:00 03/14/25 10:19 81 MG Atorvastatin Calcium 40 mg DAILY PO 03/14/25 10:00 03/17/25 10:07 40 MG Ceftriaxone Sodium 50 ml @ 100 mls/hr DAILY@09 IV 03/15/25 09:00 03/17/25 08:37 100 MLS/HR Furosemide 40 mg DAILY IV 03/15/25 10:00 03/17/25 10:07 40 MG Ipratropium [place] 0.5 mg Q4HWA [facility] 03/14/25 14:00 03/17/25 10:24 0.5 MG Albuterol 2.5 mg Q4H [facility] 03/14/25 13:30 03/17/25 10:24 2.5 MG Hydrochlorothiazide 12.5 mg DAILY PO 03/16/25 10:00 03/17/25 10:07 12.5 MG Sucralfate 1 gm BID@0600,2200 PO 03/15/25 22:00 03/17/25 05:52 1 GM Lactulose 30 ml BID PO 03/16/25 22:00 03/17/25 10:07 30 ML objective General: Alert, mild distress from shoulder pain. * Abdomen: Soft, distended but improved post-paracentesis; positive bowel sounds. * Extremities: No edema. * Neuro: No asterixis. laboratory and microbiology Laboratory Tests 03/17/25 06:16 Test 03/17/25 06:16 Range/Units Serum Glucose 101 74-106 mg/dL Problems(with codes): (1) Acute coronary syndrome (2) Contusion of leg (3) Pancreatitis, chronic (4) Ascites (5) Cirrhosis (6) Chest pain Prognosis Assessment 1. Decompensated cirrhosis with ascites, coagulopathy, thrombocytopenia, and hyperammonemia. MELD score 10 2. Ascites s/p large-volume paracentesis (6.9 L), no SBP. 3. Gallbladder sludge and distention no acute cholecystitis. 4. Hepatic encephalopathy risk ammonia elevated, currently on lactulose. 5. Alcohol-related liver disease ongoing alcohol use. 6. Macrocytic anemia, thrombocytopenia likely from liver disease and alcohol. 7. Chronic hepatitis B core Ab positive, surface Ab positive, surface antigen negative (resolved infection). GI Plan Hepatic/Ascites * Continue lactulose 30 mL PO BID, titrate to 23 BMs/day. * Albumin infusion post-paracentesis (>5L removed) to prevent paracentesis- induced circulatory dysfunction. * Start spironolactone 100 mg daily + furosemide 40 mg daily (monitor BP, electrolytes, renal function). * Low sodium diet, daily weights, strict I/O. Infection Prophylaxis * Continue ceftriaxone IV (as SBP prophylaxis). * Monitor peritoneal fluid culture (pending). Hepatic Encephalopathy * Maintain lactulose; consider rifaximin if mental status worsens. * Monitor ammonia and neuro status daily. Gallbladder Sludge * Monitor clinically; no acute cholecystitis. * Repeat imaging if symptoms develop. Nutrition * Continue PO feeds. * Recommend high-protein, low-sodium diet. * Nutritional support with thiamine, folate due to alcohol use. Surveillance * Recommend EGD for variceal screening (as outpatient). * Ultrasound with AFP every 6 months for HCC surveillance. Plan discussed with: Other (Dr Kenyon) DILLAN WASHINGTON MD Mar 17, 2025 11:37
[2025-03-17] MEDS: ACETAMINOPHEN 500 MG TAB or CAP PO ONE (11:44)
--- NOTE | 2025-03-17 12:54 | DVHPN2 ---
Subjective No cardiac event reported Patient complaint of chest Changes from previous H/P or p: No Changes Eyes: No Pain, No Vision change, No Conjunctivae inflammation, No Eyelid inflammation, No Other, No Redness ENT: No Ear pain, No Ear discharge, No Nose pain, No Nose discharge, No Nose congestion, No Mouth pain, No Mouth swelling, No Throat pain, No Throat swelling, No Other Cardiovascular: Chest Pain, Palpitations, Lt Headedness Respiratory: Shortness of breath, SOB with excertion Gastrointestinal: Nausea Genitourinary: No Dysuria, No Frequency, No Incontinence, No Hematuria, No Retention, No Other Musculoskeletal: other (Leg swelling) Skin: No Rash, No Lesions, No Jaundice, No Bruising, No Other Objective Vitals Vital Signs Date Time Temp Pulse Resp B/P (MAP) Pulse Ox O2 Delivery O2 Flow Rate FiO2 03/17/25 10:34 69 18 99 03/17/25 10:07 121/76 03/17/25 09:00 98.1 98.1 03/17/25 06:37 Room Air 03/17/25 06:37 0 21 Intake/Output Intake and Output 03/17/25 07:00 Intake Total 1600 ml Output Total 600 ml Balance 1000 ml Intake Oral 1550 ml IV Total 50 ml Output Urine Total 600 ml # Voids 6 Medications Current Medications Medications Dose Ordered Sig/Kevin Route Start Time Stop Time Status Last Admin Dose Admin Morphine Sulfate 2 mg Q4HPRN PRN IV 03/13/25 23:30 03/17/25 06:01 2 MG Nitroglycerin 0.4 mg Q5MINP PRN SL 03/13/25 23:30 Morphine Sulfate 2 mg Q30M PRN IV 03/13/25 23:30 UNV Pantoprazole Sodium 40 mg DAILY@0600 PO 03/14/25 06:00 03/17/25 05:52 40 MG Aspirin 81 mg DAILY PO 03/14/25 10:00 03/14/25 10:19 81 MG Atorvastatin Calcium 40 mg DAILY PO 03/14/25 10:00 03/17/25 10:07 40 MG Ceftriaxone Sodium 50 ml @ 100 mls/hr DAILY@09 IV 03/15/25 09:00 03/17/25 08:37 100 MLS/HR Furosemide 40 mg DAILY IV 03/15/25 10:00 03/17/25 10:07 40 MG Ipratropium [place] 0.5 mg Q4HWA [facility] 03/14/25 14:00 03/17/25 10:24 0.5 MG Albuterol 2.5 mg Q4H NEB 03/14/25 13:30 03/17/25 10:24 2.5 MG Hydrochlorothiazide 12.5 mg DAILY PO 03/16/25 10:00 03/17/25 10:07 12.5 MG Sucralfate 1 gm BID@0600,2200 PO 03/15/25 22:00 03/17/25 05:52 1 GM Lactulose 30 ml BID PO 03/16/25 22:00 03/17/25 10:07 30 ML Laboratory Results Laboratory Tests 03/17/25 06:16 Chemistry Test 03/17/25 06:16 Calcium Level 8.4 mg/dL (8.7-10.4) L Urinalysis Test 03/14/25 13:00 Urine Color Yellow (Yellow) Urine Clarity Clear (Clear) Urine pH 6.0 (5.0-9.0) Urine Specific [place] 1.028 (1.001-1.035) Urine Protein Negative (Negative) Urine Ketones Negative (Negative) Urine Blood Negative /uL (Negative) Urine Nitrite Negative (Negative) Urine Bilirubin Negative (Negative) Urine Urobilinogen Normal mg/dL (Negative) Urine Leukocyte Esterase Negative /uL (Negative) Urine RBC <1 /hpf (0 - 3) Urine Microscopic WBC 1 /HPF (0-3) Urine Squamous Epithelial Cells None seen /hpf (<5) Urine Bacteria None seen /hpf (None Seen) Urine Mucus Few (None Seen) Urine Glucose Normal mg/dL (Normal) Microbiology Microbiology Date/Time Source Procedure Growth Status 03/16/25 10:22 Ascities Fluid Gram Stain - Final Resulted 03/16/25 10:22 Ascities Fluid Body Fluid Culture - Preliminary Resulted Assessment/Plan Assessment/Plan NSTEMI, rule out coronary ischemia Coronary artery disease status post PTCA and stent to mid RCA Rule out structural heart disease Hypertension Dyslipidemia History myocardial infarction Transaminitis Morbid obesity Plan/Recommendation We will continue with the following plan/recommendations (Dr. Blackwell): Preliminary nuclear test results is positive as reviewed with Dr. Mcguire. Echocardiogram reveals a preserved ejection fraction of 60%. Given this findings, the patient is scheduled for a left heart catheterization with Dr. Blackwell on 03/19/2025 for further evaluation management. The risks, benefits, and goals of the procedure were discussed with the patient, who understands and agrees to proceed. The patient will remain on telemetry with continued monitoring of symptoms. Aspirin statins therapy will be continued, and beta adriel use will be reassessed based on hemodynamic status. Cardiology will continue to follow. This medical document was created using an electronic medical record system with voice recognition software and computerized dictation system. Although this document has been carefully reviewed, there might still be some phonetic and typographical errors. Occasional wrong-word or ``sound-alike substitutions may have occurred due to the inherent limitations of voice recognition software. These areas are purely typographical due to imperfections of the software programs and do not reflect any compromise in the patient's medical care. Please read the chart carefully and recognize, using context, where these substitutions have occurred. Plan discussed with: Patient Plan discussed with: Patient Date of Service: Mar 17, 2025 Billing Provider: ROGE BLACKWELL MD Common Visit Codes: CONSULT ONLY Consultation Codes: [id number] CONSULT <45MIN YASMIN GARIBAY ROTATING EQUIPMENT ENGINEER Mar 17, 2025 12:54
[2025-03-17 13:08] LABS: Glucose, Body Fluid 104.0 mg/dL (.); LD, Body Fluid 75.0 IU/L (.)
[2025-03-17 14:23] LABS: INR 1.18 (0.9-1.15); Partial Thromboplastin Time 28.8 SEC (24.5-34.5); Prothrombin Time 12.3 sec (9.3-11.8)
--- NOTE | 2025-03-17 16:41 | DVHPNRES ---
Progress Note Date Seen: Mar 17, 2025 Resident Creating Document: TIM BOURGEOIS RESIDENT Has the PT tested + for MRSA If YES, has PT been informed?: No Medical Necessity Reason Pt with a Central, PICC or Fol: No Subjective Review of Systems Patient is a 69 years old male with past medical history of hypertension, diabetic mellitus type 2, COPD, stroke x2, CAD, NV s/p PCI 1xDES to RCA @ [facility], presents with chest pain. Patient describes the pain started 4 days ago, pressure-like, radiate to both arms, associated with nausea, dizziness and shortness of breath. Chest pain gets worse when he walk and it gets better after taking Aspirin, Nitroglycerin. According to the patient, he has been having chest pain on exertion/eating off and on for the past couple years, however, over the last 4 days he has noticed worsening of the chest pain which is what prompted this visit to the hospital. Initial twelve lead electrocardiogram reveals normal sinus rhythm with baseline wander. Repeat EKGs to not show any significant ST segment changes. Initial troponin level of 47ng/L with up trend and peak level at 124ng/L. Patient reports he has not followed up with a assembler camper since his stent placement and only underwent one stress test in 2017 which was negative. Past medical history: coronary artery disease status post PTCA and stenting to mid RCA in 2016, hypertension, dyslipidemia, myocardial infarction, empyema with right lower lobe resection, GERD, and morbid obesity Past surgical history: Right lung resection, total hip replacement Social & Personal history: Denies smoking. Denies drugs. Drinks alcohol 50 years, since he was 19. 03/15/2025: Patient seen and examined at bedside. Patient reports that he has been drinking alcohol for the past 50 years. Today, patient complains with chest pain related food intake. Patient underwent stress test and currently waiting for the results. Today, patient denies fever, chills, constipation. Abdomen is moderately distended and positive bowel sound. Patient received a GI consult and underwent paracentesis for Ascites. Ammonia is 114, started PO lactulose 15 mg to target 2-3 bowel movement daily. 03/16/2025: Patient still complains about chest pain especially when he swallow food. Ultrasound-guided paracentesis with drainage of 6900 mL of serous fluid. Ammonia is 125, continue PO lactulose 15 mg to target 2-3 bowel movement daily. Patient underwent stress test yesterday and still waiting for the results. P eritoneal fluid- Fluid WBC: 419 H, PMN 10 03/17/25: Patient seen and examined at bedside, reports improvement in dyspnea, however, still notes some pain most pronounced in his back. Added spironolactone 100 mg once daily today for management of ascites. Possible left heart catheterization on Wednesday. Objective vital signs Vital Sign Date Time Temp Pulse Resp B/P (MAP) Pulse Ox O2 Delivery O2 Flow Rate FiO2 03/17/25 14:50 69 18 121/76 97 0.0 21 03/17/25 13:02 98.3 98.3 03/17/25 06:37 Room Air Total Intake and Output 03/16/25 03/16/25 03/17/25 15:00 23:00 07:00 Intake Total 50 ml 850 ml 700 ml Output Total 600 ml Balance 50 ml 850 ml 100 ml medications Current Medications Medications Dose Ordered Sig/Kevin Route Start Time Stop Time Status Last Admin Dose Admin Nitroglycerin 0.4 mg Q5MINP PRN SL 03/13/25 23:30 Morphine Sulfate 2 mg Q30M PRN IV 03/13/25 23:30 UNV Pantoprazole Sodium 40 mg DAILY@0600 PO 03/14/25 06:00 03/17/25 05:52 40 MG Aspirin 81 mg DAILY PO 03/14/25 10:00 03/14/25 10:19 81 MG Atorvastatin Calcium 40 mg DAILY PO 03/14/25 10:00 03/17/25 10:07 40 MG Ceftriaxone Sodium 50 ml @ 100 mls/hr DAILY@09 IV 03/15/25 09:00 03/17/25 08:37 100 MLS/HR Furosemide 40 mg DAILY IV 03/15/25 10:00 03/17/25 10:07 40 MG Ipratropium [place] 0.5 mg Q4HWA NEB 03/14/25 14:00 03/17/25 14:26 0.5 MG Albuterol 2.5 mg Q4H NEB 03/14/25 13:30 03/17/25 14:26 2.5 MG Hydrochlorothiazide 12.5 mg DAILY PO 03/16/25 10:00 03/17/25 10:07 12.5 MG Sucralfate 1 gm BID@0600,2200 PO 03/15/25 22:00 03/17/25 05:52 1 GM Lactulose 30 ml BID PO 03/16/25 22:00 03/17/25 10:07 30 ML Sodium Chloride 1,000 ml @ 0 mls/hr Q0M IV 03/18/25 00:15 Spironolactone 100 mg DAILY PO 03/18/25 10:00 Morphine Sulfate 1 mg Q6HPRN PRN IV 03/17/25 19:00 Examination General Appearance: Cooperative. Well developed. Well nourished. In mild distress Head Exam: Normal inspection Neck Exam: Normal inspection. Non-tender. Normal alignment Pulmonary/Respiratory: Chest non-tender. Clear bilateral breath sounds, no crackles, no wheezing. Cardiovascular/Chest: Regular rate and rhythm. No murmurs. Abdominal Exam: Normal bowel sounds. Soft. Distended abdomen with shifting dullness noted, Nontender. No hepatospenomegaly. No masses Lower extremities: Trace lower extremity edema Neuro/Mental Status: A&O x4. Coherent. Thoughts/Psych: Normal thought pattern. Appropriate mood and affect. Good judgement and insight Skin Exam: Normal inspection. Normal color. Warm. Dry laboratory and microbiology Laboratory Tests 03/17/25 06:16 Test 03/17/25 06:16 Range/Units Serum Glucose 101 74-106 mg/dL Microbiology Date/Time Source Procedure Growth Status 03/16/25 10:22 Ascities Fluid Gram Stain - Final Resulted 03/16/25 10:22 Ascities Fluid Body Fluid Culture - Preliminary Resulted Labs and/or images reviewed: Labs reviewed by me, Image(s) reviewed by me Problem List/Assessment/Plan Problem List/Assessment/Plan #Chest pain, NSTEMI type 1 vs 2 -Morphine 2mg IV -Nitroglycerin 0.4mg -EKG -Troponins 95 > 124 > 181 -ECHO: Biatrial enlargement. Concentric LVH. Valves are normal. EF of 60% with normal RV function. Dopplers unremarkable -Cardiology consult -Stress test, awaiting report - scheduled for left heart catheterization on Wednesday by Cardiology # transaminitis likely due to liver cirrhosis, decompensated. Meld 9 # abdominopelvic ascites due to above, s/p paracentesis with 6.9 L removed -AST 59 H, ALT 58 H, ALP 134 H, Albumin 2.8 L -Hepatitis A Ab Total: Positive H. Hep Bs Antibody: Positive H. Hep B Core Total Ab: Positive H -Liver US- Cirrhotic morphology liver and moderate volume of ascites fluid. Hepatomegaly. Gallbladder distention. Gallbladder sludge. A 9 mm nonobstructing right renal calculus -GI consult -Ammonia 114>125 -continue Lactulose 30 mL p.o. b.i.d. - Carafate 1 g p.o. b.i.d. -Ultrasound-guided paracentesis performed- drainage of 6900 mL of serous fluid. - added spironolactone 100 mg p.o. daily - furosemide 40 mg daily - IV ceftriaxone # acute hypoxic respiratory failure, on 2 L O2 NC # COPD exacerbation # possible Penumonia -Hx Lung lobe resection -Chest X-ray- Right basilar airspace disease. Pneumonia is not ruled out. Irregularity of multiple right-sided ribs, possibly secondary to prior thoracic surgery. Correlate clinically. No acute rib fracture is identified. - ipratropium and albuterol med nebs - IV ceftriaxone # probable acute on Chronic CHF with diastolic dysfunction -Lasix 40 mg IV - ordered echocardiogram: Biatrial enlargement, concentric LVH. EF 60%. #Status post NV with Stent placement (RCA) -Aspirin 81mg po -Atorvastatin 40mg po #Hypertension - resumed home medication hydrochlorothiazide - currently holding home medication benazepril as blood pressure on the softer side. Cardiac diet PUD prophylaxis: protonix 40mg DVT prophylaxis: Holding currently (neal 2) Goals of care: Full code, discussed for >16 minutes on 03/16/25 Plan discussed with patient Plan discussed with Dr. Whittaker Plan discussed with: Patient, Other (RN) My Orders My Orders Orders - TIM BOURGEOIS RESIDENT Procedure Category Date Status Time Spironolactone PHA 03/18/25 In Process (Aldactone) 10:00 Morphine Sulfate PHA 03/17/25 In Process Injection 19:00 Dietary Evaluation Review Comments: 1) If patient remains NPO > 7 days, consider EN/TPN to meet at least 75% of estimated daily needs 2) Advance to 2g Na 80g Pro hepatic diet when medically feasible 3) Consider Vitamin B1, Vitamin B9, and MVI supplementation as necessary 4) Follow-up with hepatology, gastroenterology, cardiology, and pulmonology 5) Follow-up with older adult social work specialist r/t ETOH abuse 6) Continue to monitor I&O, labs, and skin integrity Expected Outcomes/Goals: 1) patient to receive nutrition support within 7 days of NPO status 2) labs to improve 3) diet to advance 4) f/u in 3-5 days Date of Service: Mar 17, 2025 Billing Provider: FLAVIA WHITTAKER MD Common Visit Codes: [id number] INP/OBS CARE(HIGH) TIM BOURGEOIS RESIDENT Mar 17, 2025 16:41 FLAVIA WHITTAKER MD Mar 17, 2025 20:30
[2025-03-17] MEDS: MORPHINE SULFATE INJ 2 MG/ml SYRG IV PRN (20:29)
[2025-03-18] VITALS (19 sets, daily range): BP systolic 107–140; BP diastolic 43–98; PULSE 71–92; RESP 16–20; TEMP 97.8–99.3; O2SAT 93–99
[2025-03-18] MEDS ORDERED: SODIUM CHLORIDE 0.9% 1,000 ML IV SCH (00:15)
[2025-03-18 05:36] LABS: Mean Corpuscular Volume 100.2 fL (80.0-100.0)
[2025-03-18 05:39] LABS: Hematocrit 45.2 % (41.0-53.0); Hemoglobin 16.0 g/dL (13.5-17.5); Mean Corpuscular Hemoglobin 35.5 pg (28.0-32.0); Nucleated Red Blood Cells % 0.1 %
[2025-03-18 05:42] LABS: Anion Gap 8 (5-15); BUN/Creatinine Ratio 24.0 (10.0-20.0); Bilirubin, Total 1.1 mg/dL (0.2-1.0); Blood Urea Nitrogen 18 mg/dL (9-23); Carbon Dioxide 25 mmol/L (20-31); Chloride 104 mmol/L (98-107); Glucose 92 mg/dL (74-106); Sodium 137 mmol/L (136-145); Total Protein 6.6 g/dL (5.7-8.2)
[2025-03-18 05:45] LABS: Alanine Aminotransferase 65 U/L (7-40); Albumin 3.2 g/dL (3.2-4.8); Alkaline Phosphatase 120 U/L (46-116); Calcium 8.4 mg/dL (8.7-10.4); Potassium 3.4 mmol/L (3.5-5.1)
--- NOTE | 2025-03-18 08:06 | DVHPN2 ---
Subjective No cardiac event reported Patient complaint of chest Changes from previous H/P or p: No Changes Eyes: No Pain, No Vision change, No Conjunctivae inflammation, No Eyelid inflammation, No Other, No Redness ENT: No Ear pain, No Ear discharge, No Nose pain, No Nose discharge, No Nose congestion, No Mouth pain, No Mouth swelling, No Throat pain, No Throat swelling, No Other Cardiovascular: Chest Pain, Palpitations, Lt Headedness Respiratory: Shortness of breath, SOB with excertion Gastrointestinal: Nausea Genitourinary: No Dysuria, No Frequency, No Incontinence, No Hematuria, No Retention, No Other Musculoskeletal: other (Leg swelling) Skin: No Rash, No Lesions, No Jaundice, No Bruising, No Other Objective Vitals Vital Signs Date Time Temp Pulse Resp B/P (MAP) Pulse Ox O2 Delivery O2 Flow Rate FiO2 03/18/25 06:42 91 15 127/73 03/18/25 06:29 98 03/18/25 06:21 Room Air* 0 21 03/18/25 05:00 97.8 97.8 Intake/Output Intake and Output 03/18/25 07:00 Intake Total 1300 ml Balance 1300 ml Intake Oral 1250 ml IV Total 50 ml # Voids 11 # Bowel Movements 2 Medications Current Medications Medications Dose Ordered Sig/Kevin Route Start Time Stop Time Status Last Admin Dose Admin Nitroglycerin 0.4 mg Q5MINP PRN SL 03/13/25 23:30 Morphine Sulfate 2 mg Q30M PRN IV 03/13/25 23:30 UNV Pantoprazole Sodium 40 mg DAILY@0600 PO 03/14/25 06:00 03/18/25 06:11 40 MG Aspirin 81 mg DAILY PO 03/14/25 10:00 03/14/25 10:19 81 MG Atorvastatin Calcium 40 mg DAILY PO 03/14/25 10:00 03/17/25 10:07 40 MG Ceftriaxone Sodium 50 ml @ 100 mls/hr DAILY@09 IV 03/15/25 09:00 03/17/25 08:37 100 MLS/HR Furosemide 40 mg DAILY IV 03/15/25 10:00 03/17/25 10:07 40 MG Ipratropium [place] 0.5 mg Q4HWA NEB 03/14/25 14:00 03/18/25 06:21 0.5 MG Albuterol 2.5 mg Q4H NEB 03/14/25 13:30 03/18/25 06:21 2.5 MG Hydrochlorothiazide 12.5 mg DAILY PO 03/16/25 10:00 03/17/25 10:07 12.5 MG Sucralfate 1 gm BID@0600,2200 PO 03/15/25 22:00 03/18/25 06:11 1 GM Lactulose 30 ml BID PO 03/16/25 22:00 03/17/25 22:36 30 ML Sodium Chloride 1,000 ml @ 0 mls/hr Q0M IV 03/18/25 00:15 Spironolactone 100 mg DAILY PO 03/18/25 10:00 Morphine Sulfate 1 mg Q6HPRN PRN IV 03/17/25 19:00 03/18/25 06:12 1 MG Laboratory Results Laboratory Tests 03/18/25 04:45 Chemistry Test 03/18/25 04:45 Albumin 3.2 g/dL (3.2-4.8) Calcium Level 8.4 mg/dL (8.7-10.4) L Total Protein 6.6 g/dL (5.7-8.2) Coagulation Test 03/17/25 13:52 Prothrombin Time 12.3 sec (9.3-11.8) H Prothrombin Time INR 1.18 (0.9-1.15) H Activated Partial Thromboplast Time 28.8 SEC (24.5-34.5) LFT Test 03/18/25 04:45 Alanine Aminotransferase (ALT) 65 U/L (7-40) H Alkaline Phosphatase 120 U/L (46-116) H Aspartate Amino Transferase (AST) 68 U/L (13-40) H Total Bilirubin 1.1 mg/dL (0.2-1.0) H Urinalysis Test 03/14/25 13:00 Urine Color Yellow (Yellow) Urine Clarity Clear (Clear) Urine pH 6.0 (5.0-9.0) Urine Specific [place] 1.028 (1.001-1.035) Urine Protein Negative (Negative) Urine Ketones Negative (Negative) Urine Blood Negative /uL (Negative) Urine Nitrite Negative (Negative) Urine Bilirubin Negative (Negative) Urine Urobilinogen Normal mg/dL (Negative) Urine Leukocyte Esterase Negative /uL (Negative) Urine RBC <1 /hpf (0 - 3) Urine Microscopic WBC 1 /HPF (0-3) Urine Squamous Epithelial Cells None seen /hpf (<5) Urine Bacteria None seen /hpf (None Seen) Urine Mucus Few (None Seen) Urine Glucose Normal mg/dL (Normal) Microbiology Microbiology Date/Time Source Procedure Growth Status 03/16/25 10:22 Ascities Fluid Gram Stain - Final Resulted 03/16/25 10:22 Ascities Fluid Body Fluid Culture - Preliminary Resulted Assessment/Plan Assessment/Plan NSTEMI, rule out coronary ischemia Coronary artery disease status post PTCA and stent to mid RCA Rule out structural heart disease Hypertension Dyslipidemia History myocardial infarction Transaminitis Morbid obesity Plan/Recommendation We will continue with the following plan/recommendations (Dr. Blackwell): Preliminary nuclear test results is positive as reviewed with Dr. Mcguire. Echocardiogram reveals a preserved ejection fraction of 60%. Given this findings, the patient is scheduled for a left heart catheterization with Dr. Blackwell on 03/19/2025 for further evaluation management. The risks, benefits, and goals of the procedure were discussed with the patient, who understands and agrees to proceed. The patient will remain on telemetry with continued monitoring of symptoms. Aspirin statins therapy will be continued, and beta adriel use will be reassessed based on hemodynamic status. Cardiology will continue to follow. This medical document was created using an electronic medical record system with voice recognition software and computerized dictation system. Although this document has been carefully reviewed, there might still be some phonetic and typographical errors. Occasional wrong-word or ``sound-alike substitutions may have occurred due to the inherent limitations of voice recognition software. These areas are purely typographical due to imperfections of the software programs and do not reflect any compromise in the patient's medical care. Please read the chart carefully and recognize, using context, where these substitutions have occurred. Plan discussed with: Patient Plan discussed with: Patient My Orders Orders - YASMIN GARIBAY [employer] Procedure Category Date Status Time Electrocardigram EKG 03/17/25 Logged 12:54 Sodium Chloride 0.9% PHA 03/18/25 In Process 00:15 Obtain Consent For: ORDERS 03/17/25 Transmitted 12:54 Hold Enoxaparin Day PILY 03/18/25 In Process Of Procedu 00:01 D/C Tlc PILY 03/17/25 In Process 12:54 Shave Both Groins PILY 03/17/25 In Process 12:54 Provide Education PILY 03/17/25 In Process Materials 12:54 Comprehensive LAB 03/19/25 Verified Metabolic Panel 04:00 Npo (Nothing By DIET 03/19/25 Transmitted Mouth) Diet Breakfast Clopidogrel Bisulfate PHA 03/18/25 Verified (Plavix) 10:00 Enoxaparin Sodium PHA 03/18/25 Verified (Lovenox) 10:00 Potassium Er Tablet PHA 03/18/25 Verified (Klor-Con Tablet) 08:15 Date of Service: Mar 18, 2025 Billing Provider: ROGE BLACKWELL MD Common Visit Codes: CONSULT ONLY Consultation Codes: [id number] CONSULT <45MIN YASMIN GAR[employer]AY [employer] Mar 18, 2025 08:06
[2025-03-18] MEDS ORDERED: ENOXAPARIN SOD 100 MG/1 ML SYRINGE SC SCH (10:00)
[2025-03-18] MEDS: CLOPIDOGREL BISULFATE 75 MG TAB PO SCH (10:12)
[2025-03-18] MEDS: SPIRONOLACTONE 25 MG TAB PO SCH (10:12)
[2025-03-18] MEDS: POTASSIUM CHL 20 Meq TABLET PO ONE (10:13)
--- NOTE | 2025-03-18 13:44 | DVHSR ---
APPROVED REPORT Exam: Nuclear Stress Test Indication: Chest pain BMI: 0 Medical History Medical History: AK, HTN. CHF, HLD, COPD, Stents Allergies: No known drug allergies Stress Test Details Stress Test: Pharmacologic stress testing performed using 0.4 mg of regadenoson per 5 mL given IV ov er 10 seconds. HR Resting HR: 82 bpmMax Heart Rate (APMHR): 153.375553 bpm Max HR Achieved: 105 bpmTarget HR (85% APMHR): 130.756503 bpm % of APMHR: 68.63 Recovery HR: 84 bpm BP Resting BP: 132/91 mmHg Recovery BP: 142/89 mmHg ECG Resting ECG: Sinus Rhythm Clinical Reason for Termination: Completed protocol Nurse Comments Recieved pt. from [employer]. A/Ox4 on RA. Connected to playground monitor, VS stable. PIV flushes well. Reviewed POC. Pt. verbalized understanding of procedure including risks and side ef fects, agrees for stress testing. Lexiscan stress test performed per protocol. [employer] tech administered Cardiolite. Pt. tolerated well . Pt. stable, no change on exam. VS returned to baseline. Transferred to [employer] via wheelchair w/ te ch. Stress ECG Conclusion moderate inferior wall reversible ishcemia st changes on stress portion lvef 62% abnormal study NM EXAM: Myocardial Perfusion REST/STRESS Imaging Protocol: Rest Tc-99m/Stress Tc-99m 2 days Resting Data Rest SPECT myocardial perfusion imaging was performed in supine position 60 minutes following the int ravenous injection of 11.1 mCi of Tc-99m Sestamibi. Time of rest injection: 13:12 Date: 03/15/2025 Time of rest imagin:12 Date: 03/15/2025 Administration Route: IV Administration Site: Right Hand Pharmacologic Stress Pharmacologic stress test was performed by injecting Regadenoson 0.4 mg IV push followed by the intra venous injection of 26.3 mCi of Tc-99m Sestamibi. Time of stress injection: 08:36 Date: 03/15/2025 Time of stress imagin:36 Date: 03/15/2025 Administration Route: IV Administration Site: Right Hand Gated Stress SPECT was performed 60 minutes after stress injection. The images were gated to evaluate regional wall motion and calculate left ventricular ejection fracti on. Stress only was performed in the Supine position. Comments TWO DAY STUDY Nuclear Conclusion Nuclear Findings: positive for ischemia moderate inferior wall reversible ishcemia st changes on stress portion lvef 62% abnormal study
--- NOTE | 2025-03-18 14:54 | DVHPNRES ---
Progress Note Date Seen: Mar 18, 2025 Resident Creating Document: TOMAS RAMOS RESIDENT Has the PT tested + for MRSA If YES, has PT been informed?: No Medical Necessity Reason Pt with a Central, PICC or Fol: No Subjective Review of Systems Patient is a 69 years old male with past medical history of hypertension, diabetic mellitus type 2, COPD, stroke x2, CAD, AL s/p PCI 1xDES to RCA @ [facility], [facility], presents with chest pain. Patient describes the pain started 4 days ago, pressure-like, radiate to both arms, associated with nausea, dizziness and shortness of breath. Chest pain gets worse when he walk and it gets better after taking Aspirin, Nitroglycerin. According to the patient, he has been having chest pain on exertion/eating off and on for the past couple years, however, over the last 4 days he has noticed worsening of the chest pain which is what prompted this visit to the hospital. Initial twelve lead electrocardiogram reveals normal sinus rhythm with baseline wander. Repeat EKGs to not show any significant ST segment changes. Initial troponin level of 47ng/L with up trend and peak level at 124ng/L. Patient reports he has not followed up with a epic prelude analyst since his stent placement and only underwent one stress test in 2017 which was negative. Past medical history: coronary artery disease status post PTCA and stenting to mid RCA in 2016, hypertension, dyslipidemia, myocardial infarction, empyema with right lower lobe resection, GERD, and morbid obesity Past surgical history: Right lung resection, total hip replacement Social & Personal history: Denies smoking. Denies drugs. Drinks alcohol 50 years, since he was 19. 03/15/2025: Patient seen and examined at bedside. Patient reports that he has been drinking alcohol for the past 50 years. Today, patient complains with chest pain related food intake. Patient underwent stress test and currently waiting for the results. Today, patient denies fever, chills, constipation. Abdomen is moderately distended and positive bowel sound. Patient received a GI consult and underwent paracentesis for Ascites. Ammonia is 114, started PO lactulose 15 mg to target 2-3 bowel movement daily. 03/16/2025: Patient still complains about chest pain especially when he swallow food. Ultrasound-guided paracentesis with drainage of 6900 mL of serous fluid. Ammonia is 125, continue PO lactulose 15 mg to target 2-3 bowel movement daily. Patient underwent stress test yesterday and still waiting for the results. P eritoneal fluid- Fluid WBC: 419 H, PMN 10 03/17/25: Patient seen and examined at bedside, reports improvement in dyspnea, however, still notes some pain most pronounced in his back. Added spironolactone 100 mg once daily today for management of ascites. Possible left heart catheterization on Wednesday. 03/18/25: Patient complains with chest pain, palpitations, left headache, shortness of breath, nausea. Patient complains with abdominal cramping 2 times in the morning when he try to go to bathroom. Patient will begin NPO after midnight in preparation for a procedure scheduled tomorrow. Objective vital signs Vital Sign Date Time Temp Pulse Resp B/P (MAP) Pulse Ox O2 Delivery O2 Flow Rate FiO2 03/18/25 13:20 78 18 98 03/18/25 13:13 98.8 125/77 (93) 98.8 03/18/25 13:11 Room Air* 0 21 Total Intake and Output 03/17/25 03/17/25 03/18/25 15:00 23:00 07:00 Intake Total 50 ml 500 ml 750 ml Balance 50 ml 500 ml 750 ml medications Current Medications Medications Dose Ordered Sig/Kevin Route Start Time Stop Time Status Last Admin Dose Admin Nitroglycerin 0.4 mg Q5MINP PRN SL 03/13/25 23:30 Morphine Sulfate 2 mg Q30M PRN IV 03/13/25 23:30 UNV Pantoprazole Sodium 40 mg DAILY@0600 PO 03/14/25 06:00 03/18/25 06:11 40 MG Aspirin 81 mg DAILY PO 03/14/25 10:00 03/14/25 10:19 81 MG Atorvastatin Calcium 40 mg DAILY PO 03/14/25 10:00 03/18/25 10:14 40 MG Ceftriaxone Sodium 50 ml @ 100 mls/hr DAILY@09 IV 03/15/25 09:00 03/18/25 08:55 100 MLS/HR Furosemide 40 mg DAILY IV 03/15/25 10:00 03/18/25 10:14 40 MG Ipratropium [place] 0.5 mg Q4HWA NEB 03/14/25 14:00 03/18/25 13:11 0.5 MG Albuterol 2.5 mg Q4H NEB 03/14/25 13:30 03/18/25 13:11 2.5 MG Hydrochlorothiazide 12.5 mg DAILY PO 03/16/25 10:00 03/18/25 10:13 12.5 MG Sucralfate 1 gm BID@0600,2200 PO 03/15/25 22:00 03/18/25 06:11 1 GM Lactulose 30 ml BID PO 03/16/25 22:00 03/18/25 10:12 30 ML Sodium Chloride 1,000 ml @ 0 mls/hr Q0M IV 03/18/25 00:15 Spironolactone 100 mg DAILY PO 03/18/25 10:00 03/18/25 10:12 100 MG Morphine Sulfate 1 mg Q6HPRN PRN IV 03/17/25 19:00 03/18/25 06:12 1 MG Clopidogrel Bisulfate 75 mg DAILY PO 03/18/25 10:00 03/18/25 10:12 75 MG Enoxaparin Sodium 110 mg Q12HR SC 03/18/25 10:00 Hold Examination General Appearance: Cooperative. Well developed. Well nourished. In mild distress Head Exam: Normal inspection Neck Exam: Normal inspection. Non-tender. Normal alignment Pulmonary/Respiratory: Chest non-tender. Clear bilateral breath sounds, no crackles, no wheezing. Cardiovascular/Chest: Regular rate and rhythm. No murmurs. Abdominal Exam: Normal bowel sounds. Soft. Distended abdomen with shifting dullness noted, Nontender. No hepatospenomegaly. No masses Lower extremities: Trace lower extremity edema Neuro/Mental Status: A&O x4. Coherent. Thoughts/Psych: Normal thought pattern. Appropriate mood and affect. Good judgement and insight Skin Exam: Normal inspection. Normal color. Warm. Dry laboratory and microbiology Laboratory Tests 03/18/25 04:45 Test 03/18/25 04:45 Range/Units Serum Glucose 92 74-106 mg/dL Microbiology Date/Time Source Procedure Growth Status 03/16/25 10:22 Ascities Fluid Gram Stain - Final Resulted 03/16/25 10:22 Ascities Fluid Body Fluid Culture - Preliminary Resulted Labs and/or images reviewed: Labs reviewed by me, Image(s) reviewed by me (RN) Problem List/Assessment/Plan Problem List/Assessment/Plan #Chest pain, NSTEMI type 1 vs 2 -Morphine 2mg IV -Nitroglycerin 0.4mg -EKG -Troponins 95 > 124 > 181 > 217 -ECHO -Cardiology consult -Stress test- Nuclear Findings: positive for ischemia. moderate inferior wall reversible ishcemia. st changes on stress portion. lvef 62%. abnormal study # transaminitis likely due to liver cirrhosis, compensated. Meld 9 -AST 59 H, ALT 58 H, ALP 134 H, Albumin 2.8 L -Hepatitis A Ab Total: Positive H. Hep Bs Antibody: Positive H. Hep B Core Total Ab: Positive H -Liver US- Cirrhotic morphology liver and moderate volume of ascites fluid. Hepatomegaly. Gallbladder distention. Gallbladder sludge. A 9 mm nonobstructing right renal calculus -GI consult -Ammonia 114>125 -continue Lactulose 15 mg PO daily -Ultrasound-guided paracentesis performed- drainage of 6900 mL of serous fluid. -Peritoneal fluid- Fluid WBC- 419 H # acute hypoxic respiratory failure, on 2 L O2 NC # COPD exacerbation # possible Penumonia -Hx Lung lobe resection -Chest X-ray- Right basilar airspace disease. Pneumonia is not ruled out. Irregularity of multiple right-sided ribs, possibly secondary to prior thoracic surgery. Correlate clinically. No acute rib fracture is identified. - ipratropium and albuterol med nebs - IV ceftriaxone # probable acute on Chronic CHF, systolic versus diastolic -Lasix 20 mg IV - ordered echocardiogram #Status post AL with Stent placement (RCA) -Aspirin 81mg po -Atorvastatin 40mg po #Hypertension, blood pressure currently soft - holding home antihypertensive benazepril-thiazide Cardiac diet PUD prophylaxis: protonix 40mg DVT prophylaxis: Levonox 40mg Goals of care: Full code, discussed for >16 minutes on 03/18/25 Plan discussed with patient Plan discussed with Dr. Whittaker Plan discussed with: Patient, Other My Orders My Orders Orders - TOMAS RAMOS Procedure Category Date Status Time Complete Blood Count LAB 03/19/25 Verified 04:00 Basic Metabolic Panel LAB 03/19/25 Verified 04:00 Dietary Evaluation Review Comments: 1) If patient remains NPO > 7 days, consider EN/TPN to meet at least 75% of estimated daily needs 2) Advance to 2g Na 80g Pro hepatic diet when medically feasible 3) Consider Vitamin B1, Vitamin B9, and MVI supplementation as necessary 4) Follow-up with hepatology, gastroenterology, cardiology, and pulmonology 5) Follow-up with high school social studies tutor r/t ETOH abuse 6) Continue to monitor I&O, labs, and skin integrity Expected Outcomes/Goals: 1) patient to receive nutrition support within 7 days of NPO status 2) labs to improve 3) diet to advance 4) f/u in 3-5 days Date of Service: Mar 18, 2025 Billing Provider: FLAVIA WHITTAKER MD Common Visit Codes: [id number] INP/OBS CARE(HIGH) TOMAS RAMOS RESIDENT Mar 18, 2025 14:54 FLAVIA WHITTAKER MD Mar 18, 2025 21:38
[2025-03-19] VITALS (12 sets, daily range): BP systolic 104–161; BP diastolic 66–98; PULSE 74–88; RESP 16–18; TEMP 98.1–98.5; O2SAT 95–97
[2025-03-19 04:34] LABS: Hemoglobin 15.6 g/dL (13.5-17.5)
[2025-03-19 04:37] LABS: Hematocrit 44.2 % (41.0-53.0); Mean Corpuscular Hemoglobin 35.4 pg (28.0-32.0); Mean Corpuscular Volume 100.6 fL (80.0-100.0); Nucleated Red Blood Cells % 0.0 %
[2025-03-19 04:58] LABS: Alanine Aminotransferase 56 U/L (7-40); Albumin 2.9 g/dL (3.2-4.8); Alkaline Phosphatase 138 U/L (46-116); Anion Gap 7 (5-15); BUN/Creatinine Ratio 26.5 (10.0-20.0); Bilirubin, Total 0.7 mg/dL (0.2-1.0); Blood Urea Nitrogen 22 mg/dL (9-23); Calcium 8.2 mg/dL (8.7-10.4); Carbon Dioxide 27 mmol/L (20-31); Chloride 107 mmol/L (98-107); Glucose 103 mg/dL (74-106); Potassium 3.6 mmol/L (3.5-5.1); Sodium 141 mmol/L (136-145); Total Protein 6.1 g/dL (5.7-8.2)
--- NOTE | 2025-03-19 08:01 | ECG ---
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
[2025-03-19] MEDS: VERAPAMIL 2.5MG/ML INJ 2ML VIAL IV ONE (09:23)
[2025-03-19] MEDS: ANGIOMAX 250 MG VIAL IV ONE ×2 (09:23→10:34)
[2025-03-19] MEDS: HEPARIN SODIUM (PORCINE) 5000 UNITS/ML 1ML VIAL ONE (09:24)
[2025-03-19] MEDS: MIDAZOLAM HCL 2MG/2ML 2ml VIAL (1mg/ml) ONE (09:24)
[2025-03-19] MEDS: SODIUM CHL 0.9% 50 ML ONE ×2 (09:24→10:33)
[2025-03-19] MEDS: LIDOCAINE 2%HCL (LOCAL ANESTH.) INJ 20ML MDV ONE (09:24)
[2025-03-19] MEDS: fentaNYL CITRATE 100 MCG/2 ML VL ONE (09:24)
[2025-03-19] MEDS: IODIXANOL 320MG/ML 100ML BTL IV ONE ×2 (09:53→09:59)
[2025-03-19] MEDS: ATROPINE SULF 1 MG/10ml SYR ONE (09:54)
[2025-03-19] MEDS: HYDROmorphone HCL 2 MG/ML VL/or syr ONE (10:32)
[2025-03-19] MEDS: TICAGRELOR 90 MG TAB ONE (10:34)
--- NOTE | 2025-03-19 10:43 | DVHPN2 ---
Progress Note Date Seen: Mar 19, 2025 Has the PT tested + for MRSA If YES, has PT been informed?: No Medical Necessity Reason Pt with a Central, PICC or Fol: No Subjective Patient reports: Feels better Other Systems: sp pci Objective vital signs Vital Sign Date Time Temp Pulse Resp B/P (MAP) Pulse Ox O2 Delivery O2 Flow Rate FiO2 03/19/25 10:32 80 20 172/84 03/19/25 09:00 98.2 97 98.2 03/18/25 21:45 Room Air 03/18/25 21:45 0 21 Total Intake and Output 03/18/25 03/18/25 03/19/25 15:00 23:00 07:00 Intake Total 474 ml 1274 ml 450 ml Output Total 703 ml Balance 474 ml 571 ml 450 ml medications Current Medications Medications Dose Ordered Sig/Kevin Route Start Time Stop Time Status Last Admin Dose Admin Nitroglycerin 0.4 mg Q5MINP PRN SL 03/13/25 23:30 Morphine Sulfate 2 mg Q30M PRN IV 03/13/25 23:30 UNV Pantoprazole Sodium 40 mg DAILY@0600 PO 03/14/25 06:00 03/19/25 06:22 40 MG Aspirin 81 mg DAILY PO 03/14/25 10:00 03/14/25 10:19 81 MG Atorvastatin Calcium 40 mg DAILY PO 03/14/25 10:00 03/18/25 10:14 40 MG Ceftriaxone Sodium 50 ml @ 100 mls/hr DAILY@09 IV 03/15/25 09:00 03/18/25 08:55 100 MLS/HR Furosemide 40 mg DAILY IV 03/15/25 10:00 03/18/25 10:14 40 MG Ipratropium [place] 0.5 mg Q4HWA [facility] 03/14/25 14:00 03/18/25 21:45 0.5 MG Albuterol 2.5 mg Q4H NEB 03/14/25 13:30 03/18/25 21:45 2.5 MG Hydrochlorothiazide 12.5 mg DAILY PO 03/16/25 10:00 03/18/25 10:13 12.5 MG Sucralfate 1 gm BID@0600,2200 PO 03/15/25 22:00 03/19/25 06:22 1 GM Lactulose 30 ml BID PO 03/16/25 22:00 03/18/25 22:41 30 ML Sodium Chloride 1,000 ml @ 0 mls/hr Q0M IV 03/18/25 00:15 Spironolactone 100 mg DAILY PO 03/18/25 10:00 03/18/25 10:12 100 MG Morphine Sulfate 1 mg Q6HPRN PRN IV 03/17/25 19:00 03/19/25 06:23 1 MG Clopidogrel Bisulfate 75 mg DAILY PO 03/18/25 10:00 03/18/25 10:12 75 MG Enoxaparin Sodium 110 mg Q12HR SC 03/18/25 10:00 Hold Examination: GENERAL:Abnormal, HEENT:Abnormal, LUNGS:Abnormal, CVS:Abnormal, ABDOMEN:Abnormal laboratory and microbiology Laboratory Tests 03/19/25 04:08 Test 03/19/25 04:08 Range/Units Serum Glucose 103 74-106 mg/dL Microbiology Date/Time Source Procedure Growth Status 03/16/25 10:22 Ascities Fluid Gram Stain - Final Resulted 03/16/25 10:22 Ascities Fluid Body Fluid Culture - Preliminary Resulted Problem List/Assessment/Plan Problem List/Assessment/Plan ACS cad HTN HL etoh abuse morbid obesity CKD sp pci to RCA with 3 stents placed cont dapt statin add zetia for cv risk prevention cont BP meds consider dc home 03/20 if stable Plan discussed with: Patient My Orders My Orders Orders - ROGE BLACKWELL MD Procedure Category Date Status Time Cl Left Heart Cath CL 03/19/25 Taken 09:17 Dietary Evaluation Review Comments: 1) If patient remains NPO > 7 days, consider EN/TPN to meet at least 75% of estimated daily needs 2) Advance to 2g Na 80g Pro hepatic diet when medically feasible 3) Consider Vitamin B1, Vitamin B9, and MVI supplementation as necessary 4) Follow-up with hepatology, gastroenterology, cardiology, and pulmonology 5) Follow-up with delinquency prevention social worker r/t ETOH abuse 6) Continue to monitor I&O, labs, and skin integrity Expected Outcomes/Goals: 1) patient to receive nutrition support within 7 days of NPO status 2) labs to improve 3) diet to advance 4) f/u in 3-5 days Date of Service: Mar 19, 2025 Billing Provider: ROGE BLACKWELL MD Common Visit Codes: NOT BILLABLE ROGE BLACKWELL MD Mar 19, 2025 10:43
--- NOTE | 2025-03-19 10:47 | DVHOP2 ---
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 PTCA 1 vessel , PCI 1 vessel , PREOPERATIVE DIAGNOSES: Abnormal stress test with CCS class 3 angina, POSTOP DIAGNOSIS: severe 1 v cad DESCRIPTION OF PROCEDURE: The patient or appropriate family signed informed consent understanding the risks, benefits and alternatives of the procedure, they wished to proceed. The patient was brought to the cardiac laboratory monitor in n.p.o. state. The patient was prepped in a sterile fashion. Sedation was used per cardiac cath protocol. I administered 2 mL of 2% lidocaine to the right wrist. With an antegrade front wall puncture. I cannulated the right radial artery and placed a 6-Turkmen Glidesheath slender. Next, an intra-arterial spasmolytic was administered. Next, a - 6French Jackson catheter and JR4 guide and were used for coronary angiogram and LVEDP measurement and pressure pullback. At the completion of procedure, all guides and wires were removed, and there were no immediate complications. FINDINGS: RCA: Moderate vessel off the right sinus of Valsalva, there is a ruptured plaque 99% stenosis in mid portion. there is a mid to distal RCA stent . tammy nant large vessel LEFT MAIN: Moderate size left main, it bifurcates into LAD and circumflex. no severe stenosis CIRCUMFLEX: Moderate caliber vessel coming off the left main with no flow limiting stenosis. LAD: LAD is a moderate caliber vessel coming of the left main. mild distal plaqueing INTERVENTION: We decided to proceed with coronary intervention. I started with a 6F __JR4 __ Guide to intubate the _RCA _. Angiomax bolus and gtt was started. Following this, I decided to wire using an .014 BMW across the culprit lesion with ease. At this time, we performed balloon angioplasty with a 3.0 x 15 mm balloon b12 __ ATMS over __15__ seconds 3__ number of inflations. Following this, I decided to place a stent using a ____4.0 x 12 mm onyx____ stent inflated up to __16 _ ATMS over 15 seconds with two separate inflations to the distal portion of the lesion . Following this, the stent balloon removed and angio performed showing 0% residual stenosis. THen, i stented the proximal part with a 4.0 x 22 mm ASHLEY up to 16 atms with 2 inflations each 15 seconds. however, there was a mild gap between the 2 stents and then over a telescope a 4.0 x 12 mm ashley was inflated to 16 atms with 2 inflations comfirming we are in between both stents with overlap. then balloon removed and angio showed 0 % stenosis. VAZQUEZ pre/post: 3./3 CONCLUSIONS: 1. sp pci to RCA 99% ruptured plaque PLAN: Aggressive risk factor modification and medical management for the patient. DAPT x 1 year uninterrupted (consider longer ) JOSE BLACKWELL MD Mar 19, 2025 10:47
--- NOTE | 2025-03-19 11:57 | ECG ---
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
--- NOTE | 2025-03-19 13:36 | DVHPNRES ---
Progress Note Date Seen: Mar 19, 2025 Resident Creating Document: TOMAS RAMOS RESIDENT Has the PT tested + for MRSA If YES, has PT been informed?: No Medical Necessity Reason Pt with a Central, PICC or Fol: No Subjective Review of Systems Patient is a 69 years old male with past medical history of hypertension, diabetic mellitus type 2, COPD, stroke x2, CAD, HI s/p PCI 1xDES to RCA @ [facility], [facility], presents with chest pain. Patient describes the pain started 4 days ago, pressure-like, radiate to both arms, associated with nausea, dizziness and shortness of breath. Chest pain gets worse when he walk and it gets better after taking Aspirin, Nitroglycerin. According to the patient, he has been having chest pain on exertion/eating off and on for the past couple years, however, over the last 4 days he has noticed worsening of the chest pain which is what prompted this visit to the hospital. Initial twelve lead electrocardiogram reveals normal sinus rhythm with baseline wander. Repeat EKGs to not show any significant ST segment changes. Initial troponin level of 47ng/L with up trend and peak level at 124ng/L. Patient reports he has not followed up with a art manager since his stent placement and only underwent one stress test in 2017 which was negative. Past medical history: coronary artery disease status post PTCA and stenting to mid RCA in 2016, hypertension, dyslipidemia, myocardial infarction, empyema with right lower lobe resection, GERD, and morbid obesity Past surgical history: Right lung resection, total hip replacement Social & Personal history: Denies smoking. Denies drugs. Drinks alcohol 50 years, since he was 19. 03/15/2025: Patient seen and examined at bedside. Patient reports that he has been drinking alcohol for the past 50 years. Today, patient complains with chest pain related food intake. Patient underwent stress test and currently waiting for the results. Today, patient denies fever, chills, constipation. Abdomen is moderately distended and positive bowel sound. Patient received a GI consult and underwent paracentesis for Ascites. Ammonia is 114, started PO lactulose 15 mg to target 2-3 bowel movement daily. 03/16/2025: Patient still complains about chest pain especially when he swallow food. Ultrasound-guided paracentesis with drainage of 6900 mL of serous fluid. Ammonia is 125, continue PO lactulose 15 mg to target 2-3 bowel movement daily. Patient underwent stress test yesterday and still waiting for the results. P eritoneal fluid- Fluid WBC: 419 H, PMN 10 03/17/25: Patient seen and examined at bedside, reports improvement in dyspnea, however, still notes some pain most pronounced in his back. Added spironolactone 100 mg once daily today for management of ascites. Possible left heart catheterization on Wednesday. 03/18/25: Patient complains with chest pain, palpitations, left headache, shortness of breath, nausea. Patient complains with abdominal cramping 2 times in the morning when he try to go to bathroom. Patient will begin NPO after midnight in preparation for a procedure scheduled tomorrow. 03/19/25: Patient seem and examined at bedside, reports mild chest pain, dyspnea. Patient underwent a left heart catheterization today morning and is currently waiting for further evaluation/results. Patient reports feeling stable at this time. Objective vital signs Vital Sign Date Time Temp Pulse Resp B/P (MAP) Pulse Ox O2 Delivery O2 Flow Rate FiO2 03/19/25 10:32 80 20 172/84 03/19/25 09:00 98.2 97 98.2 03/19/25 08:00 Room Air* 0 21 Total Intake and Output 03/18/25 03/18/25 03/19/25 15:00 23:00 07:00 Intake Total 474 ml 1274 ml 450 ml Output Total 703 ml Balance 474 ml 571 ml 450 ml medications Current Medications Medications Dose Ordered Sig/Kevin Route Start Time Stop Time Status Last Admin Dose Admin Nitroglycerin 0.4 mg Q5MINP PRN SL 03/13/25 23:30 Morphine Sulfate 2 mg Q30M PRN IV 03/13/25 23:30 UNV Pantoprazole Sodium 40 mg DAILY@0600 PO 03/14/25 06:00 03/19/25 06:22 40 MG Aspirin 81 mg DAILY PO 03/14/25 10:00 03/14/25 10:19 81 MG Atorvastatin Calcium 40 mg DAILY PO 03/14/25 10:00 03/18/25 10:14 40 MG Ceftriaxone Sodium 50 ml @ 100 mls/hr DAILY@09 IV 03/15/25 09:00 03/19/25 08:30 100 MLS/HR Furosemide 40 mg DAILY IV 03/15/25 10:00 03/18/25 10:14 40 MG Ipratropium [place] 0.5 mg Q4HWA [facility] 03/14/25 14:00 03/18/25 21:45 0.5 MG Albuterol 2.5 mg Q4H [place] 03/14/25 13:30 03/18/25 21:45 2.5 MG Hydrochlorothiazide 12.5 mg DAILY PO 03/16/25 10:00 03/18/25 10:13 12.5 MG Sucralfate 1 gm BID@0600,2200 PO 03/15/25 22:00 03/19/25 06:22 1 GM Lactulose 30 ml BID PO 03/16/25 22:00 03/18/25 22:41 30 ML Sodium Chloride 1,000 ml @ 0 mls/hr Q0M IV 03/18/25 00:15 Spironolactone 100 mg DAILY PO 03/18/25 10:00 03/18/25 10:12 100 MG Morphine Sulfate 1 mg Q6HPRN PRN IV 03/17/25 19:00 03/19/25 06:23 1 MG Clopidogrel Bisulfate 75 mg DAILY PO 03/18/25 10:00 03/18/25 10:12 75 MG Enoxaparin Sodium 110 mg Q12HR SC 03/18/25 10:00 Hold Examination General Appearance: Cooperative. Well developed. Well nourished. In mild distress Head Exam: Normal inspection Neck Exam: Normal inspection. Non-tender. Normal alignment Pulmonary/Respiratory: Chest non-tender. Clear bilateral breath sounds, no crackles, no wheezing. Cardiovascular/Chest: Regular rate and rhythm. No murmurs. Abdominal Exam: Normal bowel sounds. Soft. Distended abdomen with shifting dullness noted, Nontender. No hepatospenomegaly. No masses Lower extremities: Trace lower extremity edema Neuro/Mental Status: A&O x4. Coherent. Thoughts/Psych: Normal thought pattern. Appropriate mood and affect. Good judgement and insight Skin Exam: Normal inspection. Normal color. Warm. Dry laboratory and microbiology Laboratory Tests 03/19/25 04:08 Test 03/19/25 04:08 Range/Units Serum Glucose 103 74-106 mg/dL Microbiology Date/Time Source Procedure Growth Status 03/16/25 10:22 Ascities Fluid Gram Stain - Final Resulted 03/16/25 10:22 Ascities Fluid Body Fluid Culture - Preliminary Resulted Labs and/or images reviewed: Labs reviewed by me, Image(s) reviewed by me (RN) Problem List/Assessment/Plan Problem List/Assessment/Plan #Chest pain, NSTEMI type 1 vs 2 -Morphine 2mg IV -Nitroglycerin 0.4mg -EKG -Troponins 95 > 124 > 181 > 217 -ECHO -Cardiology consult -Stress test- Nuclear Findings: positive for ischemia. moderate inferior wall reversible ishcemia. st changes on stress portion. lvef 62%. abnormal study -Angiography results pending # transaminitis likely due to liver cirrhosis, decompensated. Meld 9 -AST 59 H, ALT 58 H, ALP 134 H, Albumin 2.8 L -Hepatitis A Ab Total: Positive H. Hep Bs Antibody: Positive H. Hep B Core Total Ab: Positive H -Liver US- Cirrhotic morphology liver and moderate volume of ascites fluid. Hepatomegaly. Gallbladder distention. Gallbladder sludge. A 9 mm nonobstructing right renal calculus -GI consult -Ammonia 114>125 -continue Lactulose 15 mg PO daily -Ultrasound-guided paracentesis performed- drainage of 6900 mL of serous fluid. -Peritoneal fluid- Fluid WBC- 419 H # acute hypoxic respiratory failure, on 2 L O2 NC # COPD exacerbation # possible Penumonia -Hx Lung lobe resection -Chest X-ray- Right basilar airspace disease. Pneumonia is not ruled out. Irregularity of multiple right-sided ribs, possibly secondary to prior thoracic surgery. Correlate clinically. No acute rib fracture is identified. - ipratropium and albuterol med nebs - IV ceftriaxone # probable acute on Chronic CHF, systolic versus diastolic -Lasix 20 mg IV - ordered echocardiogram #Status post HI with Stent placement (RCA) -Aspirin 81mg po -Atorvastatin 40mg po #Hypertension, blood pressure currently soft - holding home antihypertensive benazepril-thiazide Cardiac diet PUD prophylaxis: protonix 40mg DVT prophylaxis: Levonox 40mg Goals of care: Full code, discussed for >16 minutes on 03/19/25 Plan discussed with patient Plan discussed with Dr. Whittaker Plan discussed with: Patient, Other Dietary Evaluation Review Comments: 1) If patient remains NPO > 7 days, consider EN/TPN to meet at least 75% of estimated daily needs 2) Advance to 2g Na 80g Pro hepatic diet when medically feasible 3) Consider Vitamin B1, Vitamin B9, and MVI supplementation as necessary 4) Follow-up with hepatology, gastroenterology, cardiology, and pulmonology 5) Follow-up with social sciences instructor r/t ETOH abuse 6) Continue to monitor I&O, labs, and skin integrity Expected Outcomes/Goals: 1) patient to receive nutrition support within 7 days of NPO status 2) labs to improve 3) diet to advance 4) f/u in 3-5 days TOMAS RAMOS RESIDENT Mar 19, 2025 13:36 TIM BOURGEOIS RESIDENT Mar 19, 2025 18:44
--- NOTE | 2025-03-19 16:10 | DVHPN2 ---
Progress Note Date Seen: Mar 19, 2025 Resident Creating Document: CIARRA LINDSAY RESIDENT Has the PT tested + for MRSA If YES, has PT been informed?: No Medical Necessity Reason Pt with a Central, PICC or Fol: No Subjective Review of Systems Patient is a 69-year-old male with known history of cirrhosis (likely multifactorial, including alcohol-related liver disease), coronary artery disease s/p PCI with 3 stents placed to RCA on 03/16/25 for 99% ruptured plaque, and chronic kidney disease. Patient reports having a bowel movement today, with no nausea or vomiting. He is tolerating oral diet well, but now complains of mild bloating and abdominal distension noted this morning. No reports of hematemesis, melena, hematochezia, or diarrhea. No recent fevers or chills. No significant pain reported. He is currently afebrile and hemodynamically stable, continues on oral Protonix, GI team outpatient follow-up is scheduled in 24 weeks Objective vital signs Vital Sign Date Time Temp Pulse Resp B/P (MAP) Pulse Ox O2 Delivery O2 Flow Rate FiO2 03/19/25 11:32 79 18 161/96 (117) 95 03/19/25 10:32 98.2 98.2 03/19/25 08:00 Room Air* 0 21 Total Intake and Output 03/18/25 03/18/25 03/19/25 15:00 23:00 07:00 Intake Total 474 ml 1274 ml 450 ml Output Total 703 ml Balance 474 ml 571 ml 450 ml medications Current Medications Medications Dose Ordered Sig/Kevin Route Start Time Stop Time Status Last Admin Dose Admin Nitroglycerin 0.4 mg Q5MINP PRN SL 03/13/25 23:30 Morphine Sulfate 2 mg Q30M PRN IV 03/13/25 23:30 UNV Pantoprazole Sodium 40 mg DAILY@0600 PO 03/14/25 06:00 03/19/25 06:22 40 MG Aspirin 81 mg DAILY PO 03/14/25 10:00 03/14/25 10:19 81 MG Atorvastatin Calcium 40 mg DAILY PO 03/14/25 10:00 03/18/25 10:14 40 MG Ceftriaxone Sodium 50 ml @ 100 mls/hr DAILY@09 IV 03/15/25 09:00 03/19/25 08:30 100 MLS/HR Furosemide 40 mg DAILY IV 03/15/25 10:00 03/18/25 10:14 40 MG Ipratropium [place] 0.5 mg Q4HWA [facility] 03/14/25 14:00 03/18/25 21:45 0.5 MG Albuterol 2.5 mg Q4H [facility] 03/14/25 13:30 03/18/25 21:45 2.5 MG Hydrochlorothiazide 12.5 mg DAILY PO 03/16/25 10:00 03/18/25 10:13 12.5 MG Sucralfate 1 gm BID@0600,2200 PO 03/15/25 22:00 03/19/25 06:22 1 GM Lactulose 30 ml BID PO 03/16/25 22:00 03/18/25 22:41 30 ML Sodium Chloride 1,000 ml @ 0 mls/hr Q0M IV 03/18/25 00:15 Spironolactone 100 mg DAILY PO 03/18/25 10:00 03/18/25 10:12 100 MG Morphine Sulfate 1 mg Q6HPRN PRN IV 03/17/25 19:00 03/19/25 06:23 1 MG Clopidogrel Bisulfate 75 mg DAILY PO 03/18/25 10:00 03/18/25 10:12 75 MG Enoxaparin Sodium 110 mg Q12HR SC 03/18/25 10:00 Hold Examination General Alert, NAD Abdomen Soft, mildly distended, NT, no guarding or rebound. No fluid wave noted. Normoactive bowel sounds. No hepatosplenomegaly. Skin No jaundice, spider angiomas, or palmar erythema Neuro No asterixis Cardio/Pulm WNL laboratory and microbiology Laboratory Tests 03/19/25 04:08 Test 03/19/25 04:08 Range/Units Serum Glucose 103 74-106 mg/dL Microbiology Date/Time Source Procedure Growth Status 03/16/25 10:22 Ascities Fluid Gram Stain - Final Resulted 03/16/25 10:22 Ascities Fluid Body Fluid Culture - Preliminary Resulted Problem List/Assessment/Plan Problem List/Assessment/Plan Assessment 1. Decompensated cirrhosis with ascites, coagulopathy, thrombocytopenia, and hyperammonemia. MELD score ?9. 2. Ascites s/p large-volume paracentesis (6.9 L), no SBP. 3. Gallbladder sludge and distention no acute cholecystitis. 4. Hepatic encephalopathy risk ammonia elevated, currently on lactulose. 5. Alcohol-related liver disease ongoing alcohol use. 6. Macrocytic anemia, thrombocytopenia likely from liver disease and alcohol. 7. Chronic hepatitis B core Ab positive, surface Ab positive, surface antigen negative (resolved infection). GI Plan Hepatic/Ascites * Continue lactulose 30 mL PO BID, titrate to 23 BMs/day. * Albumin infusion post-paracentesis (>5L removed) to prevent paracentesis- induced circulatory dysfunction. * Start spironolactone 100 mg daily + furosemide 40 mg daily (monitor BP, electrolytes, renal function). * Low sodium diet, daily weights, strict I/O. * outpatient GI follow up in 2-3 weeks workup for autoimmune hepatitis, hemochromatosis, alpha-1 antitrypsin, HCV/HBV . Infection Prophylaxis * Continue ceftriaxone IV (as SBP prophylaxis). * Monitor peritoneal fluid culture (pending). Hepatic Encephalopathy * Maintain lactulose; consider rifaximin if mental status worsens. * Monitor ammonia and neuro status daily. Gallbladder Sludge * Monitor clinically; no acute cholecystitis. * Repeat imaging if symptoms develop. Nutrition * Continue PO feeds. * Recommend high-protein, low-sodium diet. * Nutritional support with thiamine, folate due to alcohol use. Surveillance * Recommend EGD for variceal screening (as outpatient). * Ultrasound with AFP every 6 months for HCC surveillance. GI/Nutrition * Continue Protonix 40 mg PO daily, caralfate * Diet: Regular PO diet, tolerating well. * Monitor for signs of GI bleeding. * If bloating worsens or oral intake decreases, consider: * NPO & IV hydration * Abdominal imaging (US/CT) * NG tube if ileus/SBO suspected Case discussed in detail with the attending physician, including the clinical presentation, diagnostic workup, and comprehensive management plan. The patient was present for the discussion and demonstrated understanding of his condition and the proposed plan. Plan discussed with: Patient Dietary Evaluation Review Comments: 1) If patient remains NPO > 7 days, consider EN/TPN to meet at least 75% of estimated daily needs 2) Advance to 2g Na 80g Pro hepatic diet when medically feasible 3) Consider Vitamin B1, Vitamin B9, and MVI supplementation as necessary 4) Follow-up with hepatology, gastroenterology, cardiology, and pulmonology 5) Follow-up with social service coordinator r/t ETOH abuse 6) Continue to monitor I&O, labs, and skin integrity Expected Outcomes/Goals: 1) patient to receive nutrition support within 7 days of NPO status 2) labs to improve 3) diet to advance 4) f/u in 3-5 days CIARRA LINDSAY RESIDENT Mar 19, 2025 16:10
[2025-03-20] VITALS (8 sets, daily range): BP systolic 119–146; BP diastolic 75–94; PULSE 71–94; RESP 16–21; TEMP 36.8; O2SAT 96–98
[2025-03-20 06:52] LABS: Hematocrit 43.6 % (41.0-53.0); Hemoglobin 15.4 g/dL (13.5-17.5); Mean Corpuscular Hemoglobin 36.3 pg (28.0-32.0); Mean Corpuscular Volume 102.8 fL (80.0-100.0); Nucleated Red Blood Cells % 0.4 %
[2025-03-20 06:53] LABS: Anion Gap 8 (5-15); Carbon Dioxide 26 mmol/L (20-31); Chloride 105 mmol/L (98-107); Potassium 4.0 mmol/L (3.5-5.1); Sodium 139 mmol/L (136-145)
[2025-03-20 06:59] LABS: BUN/Creatinine Ratio 33.3 (10.0-20.0); Blood Urea Nitrogen 24 mg/dL (9-23); Calcium 7.9 mg/dL (8.7-10.4); Glucose 91 mg/dL (74-106)
[2025-03-20] MEDS: ALBUTEROL SULF 2.5 MG/0.5ML(0.5%) NEB SOLN NEB PRN (08:53)
[2025-03-20] MEDS: IPRATROPIUM BROM 0.5 MG/2.5ML INH SOL NEB PRN (08:53)
--- NOTE | 2025-03-20 11:46 | DVHPN2 ---
Progress Note Date Seen: Mar 20, 2025 Has the PT tested + for MRSA If YES, has PT been informed?: No Medical Necessity Reason Pt with a Central, PICC or Fol: No Objective vital signs Vital Sign Date Time Temp Pulse Resp B/P (MAP) Pulse Ox O2 Delivery O2 Flow Rate FiO2 03/20/25 11:32 74 20 120/88 03/20/25 09:00 98.1 98 98.1 03/20/25 08:53 Room Air 03/20/25 08:53 0 21 Total Intake and Output 03/19/25 03/19/25 03/20/25 15:00 23:00 07:00 Intake Total 1700 ml 400 ml Balance 1700 ml 400 ml medications Current Medications Medications Dose Ordered Sig/Kevin Route Start Time Stop Time Status Last Admin Dose Admin Nitroglycerin 0.4 mg Q5MINP PRN SL 03/13/25 23:30 Morphine Sulfate 2 mg Q30M PRN IV 03/13/25 23:30 UNV Pantoprazole Sodium 40 mg DAILY@0600 PO 03/14/25 06:00 03/20/25 05:35 40 MG Aspirin 81 mg DAILY PO 03/14/25 10:00 03/20/25 11:14 81 MG Atorvastatin Calcium 40 mg DAILY PO 03/14/25 10:00 03/20/25 11:17 40 MG Ceftriaxone Sodium 50 ml @ 100 mls/hr DAILY@09 IV 03/15/25 09:00 03/20/25 11:10 100 MLS/HR Furosemide 40 mg DAILY IV 03/15/25 10:00 03/20/25 11:11 40 MG Hydrochlorothiazide 12.5 mg DAILY PO 03/16/25 10:00 03/20/25 11:13 12.5 MG Sucralfate 1 gm BID@0600,2200 PO 03/15/25 22:00 03/20/25 05:35 1 GM Lactulose 30 ml BID PO 03/16/25 22:00 03/20/25 11:12 30 ML Spironolactone 100 mg DAILY PO 03/18/25 10:00 03/20/25 11:12 100 MG Morphine Sulfate 1 mg Q6HPRN PRN IV 03/17/25 19:00 03/20/25 11:32 1 MG Clopidogrel Bisulfate 75 mg DAILY PO 03/18/25 10:00 03/20/25 11:15 75 MG Albuterol 2.5 mg Q6HPRN PRN NEB 03/19/25 19:30 03/20/25 08:53 2.5 MG Ipratropium [place] 0.5 mg Q6HP PRN NEB 03/19/25 19:30 03/20/25 08:53 0.5 MG Examination: GENERAL:Abnormal, HEENT:Abnormal, LUNGS:Abnormal, CVS:Abnormal, ABDOMEN:Abnormal laboratory and microbiology Laboratory Tests 03/20/25 05:58 Test 03/20/25 05:58 Range/Units Serum Glucose 91 74-106 mg/dL Microbiology Date/Time Source Procedure Growth Status 03/16/25 10:22 Ascities Fluid Gram Stain - Final Resulted 03/16/25 10:22 Ascities Fluid Body Fluid Culture - Preliminary Resulted Problem List/Assessment/Plan Problem List/Assessment/Plan ACS cad HTN HL etoh abuse morbid obesity CKD sp pci to RCA with 3 stents placed cont dapt statin add zetia for cv risk prevention cont BP meds consider dc home whn stable continued drinkin will lead to his and liver failure Plan discussed with: Patient My Orders My Orders Orders - ROGE BLACKWELL MD Procedure Category Date Status Time Post Cath Vital Signs PILY 03/19/25 In Process Q 15min 14:41 Post Cath Activity PILY 03/19/25 In Process Protocol 14:41 Communication Order ORDERS 03/19/25 Transmitted 10:30 Dietary Evaluation Review Comments: 1) If patient remains NPO > 7 days, consider EN/TPN to meet at least 75% of estimated daily needs 2) Advance to 2g Na 80g Pro hepatic diet when medically feasible 3) Consider Vitamin B1, Vitamin B9, and MVI supplementation as necessary 4) Follow-up with hepatology, gastroenterology, cardiology, and pulmonology 5) Follow-up with social secretary r/t ETOH abuse 6) Continue to monitor I&O, labs, and skin integrity Expected Outcomes/Goals: 1) patient to receive nutrition support within 7 days of NPO status 2) labs to improve 3) diet to advance 4) f/u in 3-5 days Date of Service: Mar 20, 2025 Billing Provider: ROGE BLACKWELL MD Common Visit Codes: NOT BILLABLE ROGE BLACKWELL MD Mar 20, 2025 11:46
--- NOTE | 2025-03-20 13:05 | DVH ---
US ABDOMEN LIMITED HISTORY: evaluate for ascites COMPARISON: US PARACENTESIS on DOS: 03/16/25, US LIVER on DOS: 03/14/25 TECHNIQUE: Transverse and longitudinal sonographic images were obtained of all four quadrants of the abdomen and pelvis. FINDINGS: IMPRESSION: There is mild ascites.
[2025-03-20] MEDS ORDERED: LACT10PA2 PO (14:15)
[2025-03-20] MEDS ORDERED: ATOR20TA50 PO (14:15)
[2025-03-20] MEDS ORDERED: CLOP75TA70 PO (14:15)
[2025-03-20] MEDS ORDERED: ALB5IS NEB (14:15)
[2025-03-20] MEDS ORDERED: SPIR100T4 PO (14:15)
[2025-03-20] MEDS ORDERED: IPR002IS NEB (14:15)
[2025-03-20] MEDS ORDERED: HYDR25TA5 PO (14:15)
[2025-03-20] MEDS ORDERED: ASPI-325 PO (14:15)
--- NOTE | 2025-03-20 14:44 | DVHDSRES ---
Discharge Summary Date of Admission Resident Creating Document: TOMAS RAMOS RESIDENT Mar 13, 2025 at 23:28 Date of Discharge: Mar 20, 2025 Labs/Diagnostic Data: Laboratory Results Test 03/20/25 05:58 03/19/25 04:08 03/17/25 13:52 03/16/25 10:22 White Blood Count 9.2 10^3/uL (4.4-10.8) Red Blood Count 4.24 10^6/uL (4.5-5.90) Hemoglobin 15.4 g/dL (13.5-17.5) Hematocrit 43.6 % (41.0-53.0) Mean Corpuscular Volume 102.8 fL (80.0-100.0) Mean Corpuscular Hemoglobin 36.3 pg (28.0-32.0) Mean Corpuscular Hemoglobin Concent 35.4 g/dL (32.0-36.0) Red Cell Distribution Width 14.6 % (11.8-14.3) Platelet Count 125 10^3/uL (140-450) Mean Platelet Volume 10.3 fL (6.9-10.8) Neutrophils (%) (Auto) 71.9 % (37.0-80.0) Lymphocytes (%) (Auto) 10.2 % (10.0-50.0) Monocytes (%) (Auto) 12.5 % (0.0-12.0) Eosinophils (%) (Auto) 4.6 % (0.0-7.0) Basophils (%) (Auto) 0.8 % (0.0-2.0) Neutrophils # (Auto) 6.6 10 ^3/uL (1.6-8.6) Lymphocytes # (Auto) 0.9 10 ^3/uL (0.4-5.4) Monocytes # (Auto) 1.2 10 ^3/uL (0-1.3) Eosinophils # (Auto) 0.4 10 ^3/uL (0-0.8) Basophils # (Auto) 0.1 10 ^3/uL (0-0.2) Nucleated Red Blood Cells 0.4 % Sodium Level 139 mmol/L (136-145) Potassium Level 4.0 mmol/L (3.5-5.1) Chloride Level 105 mmol/L (98-107) Carbon Dioxide Level 26 mmol/L (20-31) Anion Gap 8 (5-15) Blood Urea Nitrogen 24 mg/dL (9-23) Creatinine 0.72 mg/dL (0.700-1.30) Glomerular Filtration Rate Calc 100 mL/min (>90) BUN/Creatinine Ratio 33.3 (10.0-20.0) Serum Glucose 91 mg/dL (74-106) Calcium Level 7.9 mg/dL (8.7-10.4) Total Bilirubin 0.7 mg/dL (0.2-1.0) Aspartate Amino Transferase (AST) 65 U/L (13-40) Alanine Aminotransferase (ALT) 56 U/L (7-40) Alkaline Phosphatase 138 U/L (46-116) Total Protein 6.1 g/dL (5.7-8.2) Albumin 2.9 g/dL (3.2-4.8) Prothrombin Time 12.3 sec (9.3-11.8) Prothrombin Time INR 1.18 (0.9-1.15) Activated Partial Thromboplast Time 28.8 SEC (24.5-34.5) Troponin I High Sensitivity 217 ng/L (</=54) Body Fluid Source Peritoneal fluid Body Fluid pH 9.0 Body Fluid WBC (Manual) 419 CUMM (0-200) Body Fluid RBC (Manual) 1629 CUMM (0-2000) Body Fluid Mononuclear Cells 90 % Body Fluid Polymorphonuclear Cells 10 % (0-25) Body Fluid Glucose 104 mg/dL (.) Body Fluid Total Protein 0.8 g/dL (.) Body Fluid Lactate Dehydrogenase 75 IU/L (.) Test 03/16/25 06:31 03/14/25 13:00 03/14/25 06:17 03/13/25 20:30 Ammonia 125 umol/L (11-32) Lactate Dehydrogenase 323 U/L (120-246) Urine Color Yellow (Yellow) Urine Clarity Clear (Clear) Urine pH 6.0 (5.0-9.0) Urine Specific [place] 1.028 (1.001-1.035) Urine Protein Negative (Negative) Urine Ketones Negative (Negative) Urine Blood Negative /uL (Negative) Urine Nitrite Negative (Negative) Urine Bilirubin Negative (Negative) Urine Urobilinogen Normal mg/dL (Negative) Urine Leukocyte Esterase Negative /uL (Negative) Urine RBC <1 /hpf (0 - 3) Urine Microscopic WBC 1 /HPF (0-3) Urine Squamous Epithelial Cells None seen /hpf (<5) Urine Bacteria None seen /hpf (None Seen) Urine Mucus Few (None Seen) Urine Glucose Normal mg/dL (Normal) Urine Opiates Screen Neg (NEGATIVE) Urine Fentanyl Screen Neg (NEGATIVE) Urine Barbiturates Screen Neg (NEGATIVE) Urine Phencyclidine Screen Neg (NEGATIVE) Urine Amphetamines Screen Neg (NEGATIVE) Urine Benzodiazepines Screen Neg (NEGATIVE) Urine Cocaine Screen Neg (NEGATIVE) Urine Cannabinoids Screen Neg (NEGATIVE) Thyroid Stimulating Hormone (TSH) 1.75 uIU/mL (0.55-4.78) Hepatitis A Antibody Total Positive (Negative) Hepatitis B Surface Antigen Negative (Negative) Hepatitis B Surface Antibody Positive (Negative) Hepatitis B Core Total Antibody Positive (Negative) Hepatitis C Antibody Negative (Negative) Hemoglobin A1c 5.2 % A1C (<5.7) B-Type Natriuretic Peptide 58.15 pg/mL (0-100) Triglycerides Level 130 mg/dL (< 150) Cholesterol Level 146 mg/dL (< 200) LDL Cholesterol 73 mg/dL (< 100) HDL Cholesterol 48 mg/dL (40-59) Other Laboratory Tests 03/20/25 05:58 Brief Hx & Hospital Course: Patient is a 69 years old male with past medical history of hypertension, diabetic mellitus type 2, COPD, stroke x2, CAD, SC s/p PCI 1xDES to RCA @ [facility], [facility], presents with chest pain. Patient describes the pain started 4 days ago, pressure-like, radiate to both arms, associated with nausea, dizziness and shortness of breath. Chest pain gets worse when he walk and it gets better after taking Aspirin, Nitroglycerin. According to the patient, he has been having chest pain on exertion/eating off and on for the past couple years, however, over the last 4 days he has noticed worsening of the chest pain which is what prompted this visit to the hospital. Initial twelve lead electrocardiogram reveals normal sinus rhythm with baseline wander. Repeat EKGs to not show any significant ST segment changes. Initial troponin level of 47ng/L with up trend and peak level at 124ng/L. Patient reports he has not followed up with a fieldwork coordinator since his stent placement and only underwent one stress test in 2017 which was negative. Past medical history: coronary artery disease status post PTCA and stenting to mid RCA in 2016, hypertension, dyslipidemia, myocardial infarction, empyema with right lower lobe resection, GERD, and morbid obesity Past surgical history: Right lung resection, total hip replacement Social & Personal history: Denies smoking. Denies drugs. Drinks alcohol 50 years, since he was 19. Hospital course: During the course of hospitalization patient also underwent a stress test which was positive for ischemia and prompted the patient to undergo left heart catheterization during which he underwent 3 VIJAYA placement to RCA. During the course of hospitalization patient was noted to have ascites with a cirrhotic liver and a MELD score of 9, GI was consulted and furosemide 40 mg and spironolactone 100 mg were added to patient's regimen. patient underwent paracentesis and had removal of 6.9 L of fluid. Patient was also noted to have serum ammonia of 114 but without hepatic encephalopathy for which he was started on lactulose 15 mg p.o. daily to target 2-3 bowel movements daily. Patient was counseled extensively to quit drinking alcohol, adhere to a low-salt diet and fluid restriction, patient demonstrated understanding. On the day of discharge, patient appeared well and had stable vital signs. Patient was scheduled for discharge clinic with instructions to follow up in the discharge clinic at his earliest convenience along with follow up with GI doctor and fieldwork coordinator were recommended to which patient demonstrated understanding. Patient was prescribed aspirin 81 mg, atorvastatin 20 mg, clopidogrel 75 mg, hydrochlorothiazide 12.5 mg, spironolactone 100 mg, furosemide 40 mg and medications were delivered to bedside before patient was sent home. His hospital course was uncomplicated. Operations or Procedures PROCEDURE(s): ABDL - ABDOMEN LIMITED REASON: evaluate for ascites ORDER NUMBER(s): [id number], ACCESSION NUMBER(s): [id number] US ABDOMEN LIMITED HISTORY: evaluate for ascites COMPARISON: US PARACENTESIS on DOS: 03/16/25, US LIVER on DOS: 03/14/25 TECHNIQUE: Transverse and longitudinal sonographic images were obtained of all four quadrants of the abdomen and pelvis. FINDINGS: IMPRESSION: There is mild ascites. PROCEDURE(s): PARAC - PARACENTESIS REASON: PARACENTESIS ORDER NUMBER(s): [id number], ACCESSION NUMBER(s): [id number] PROCEDURE: Ultrasound-guided paracentesis Procedural Personnel Attending physician(s): Wilmer Johnson Fellow physician(s): None Resident physician(s): None Advanced practice provider(s): None Pre-procedure diagnosis: Ascites Post-procedure diagnosis: Same Indication: PARACENTESIS Additional clinical history: None Complications: No immediate complications. IMPRESSION: Ultrasound-guided paracentesis with drainage of 6900 mL of serous fluid. Plan: Resume care by clinical team. PROCEDURE SUMMARY: - Ultrasound-guided paracentesis - Additional procedure(s): None PROCEDURE DETAILS: Pre-procedure Consent: Informed consent for the procedure including risks, benefits and alternatives was obtained and time-out was performed prior to the procedure. Preparation: The site was prepared and draped using maximal sterile barrier technique including cutaneous antisepsis. Anesthesia/sedation Level of anesthesia/sedation: No sedation Anesthesia/sedation administered by: Not applicable Total intra-service sedation time (minutes): Not applicable Initial abdominal ultrasound Initial abdominal ultrasound was performed. Findings: Large ascites. Paracentesis Local anesthesia was administered. A safe window for paracentesis was identified with ultrasound. The peritoneal cavity was accessed and fluid return confirmed position. Ascites was drained. The catheter was removed and a sterile dressing was applied. Catheter size (Fr):5 Fluid appearance: serous Volume drained (mL): 6900 Post-drainage ultrasound: No visible ascites Albumin Administration Grams of albumin given intravenously: None Additional Details Additional description of procedure: None Registry event: V/3/f Device used: None Equipment details: None Specimens removed: Aspirated fluid was sent for analysis. Estimated blood loss (mL): Less than 10 Standardized report: [email or web address] Attestation Signer name: Wilmer Johnson I attest that I was present for the entire procedure. I reviewed the stored images and agree with the report as written. - PROCEDURE(s): CWMM - CARDIOLITE MULTIPLE REASON: Chest pain ORDER NUMBER(s): [id number], ACCESSION NUMBER(s): [id number] APPROVED REPORT Exam: Nuclear Stress Test Indication: Chest pain BMI: 0 Medical History Medical History: SC, HTN. CHF, HLD, COPD, Stents Allergies: No known drug allergies Stress Test Details Stress Test: Pharmacologic stress testing performed using 0.4 mg of regadenoson per 5 mL given IV over 10 seconds. HR Resting HR: 82 bpm Max Heart Rate (APMHR): 153.851809 bpm Max HR Achieved: 105 bpm Target HR (85% APMHR): 130.012095 bpm % of APMHR: 68.63 Recovery HR: 84 bpm BP Resting BP: 132/91 mmHg Recovery BP: 142/89 mmHg ECG Resting ECG: Sinus Rhythm Clinical Reason for Termination: Completed protocol Nurse Comments Recieved pt. from [employer]. A/Ox4 on RA. Connected to ekg monitor, VS stable. PIV flushes well. Reviewed POC. Pt. verbalized understanding of procedure including risks and side effects, agrees for stress testing. Lexiscan stress test performed per protocol. [employer] tech administered Cardiolite. Pt. tolerated well. Pt. stable, no change on exam. VS returned to baseline. Transferred to [employer] via wheelchair w/ tech. Stress ECG Conclusion moderate inferior wall reversible ishcemia st changes on stress portion lvef 62% abnormal study NM EXAM: Myocardial Perfusion REST/STRESS Imaging Protocol: Rest Tc-99m/Stress Tc-99m 2 days Resting Data Rest SPECT myocardial perfusion imaging was performed in supine position 60 minutes following the intravenous injection of 11.1 mCi of Tc-99m Sestamibi. Time of rest injection: 13:12 Date: 03/15/2025 Time of rest imagin:12 Date: 03/15/2025 Administration Route: IV Administration Site: Right Hand Pharmacologic Stress Pharmacologic stress test was performed by injecting Regadenoson 0.4 mg IV push followed by the intravenous injection of 26.3 mCi of Tc-99m Sestamibi. Time of stress injection: 08:36 Date: 03/15/2025 Time of stress imagin:36 Date: 03/15/2025 Administration Route: IV Administration Site: Right Hand Gated Stress SPECT was performed 60 minutes after stress injection. The images were gated to evaluate regional wall motion and calculate left ventricular ejection fraction. Stress only was performed in the Supine position. Comments TWO DAY STUDY Nuclear Conclusion Nuclear Findings: positive for ischemia moderate inferior wall reversible ishcemia st changes on stress portion lvef 62% abnormal study SIGNED BY: ROGE BLACKWELL MD SIGNED DATE/TIME: 03/18/25 1344 - PROCEDURE(s): LIVUS - LIVER REASON: transamnitis ORDER NUMBER(s): [id number], ACCESSION NUMBER(s): [id number] Technique: Real-time ultrasound imaging of the abdomen was performed with grayscale and color Doppler. Indication: transamnitis Comparison: None Findings: Liver measures 17.2 cm. It is increased in echogenicity and echotexture without focal mass. Portal vein is normal in caliber and demonstrates normal hepatopetal flow. Moderate volume ascites fluid. Gallbladder demonstrates no evidence for cholelithiasis. Gallbladder distention and sludge. There is no pericholecystic fluid. The wall thickness is normal. The common bile duct measures 5 mm. No intrahepatic biliary ductal dilatation. The right kidney measures 12.2 cm. The left kidney measures 10.9 cm. No hydronephrosis . Nonobstructing right renal calculus measuring 9 mm. The visualized portion of the pancreas is unremarkable. Impression: Cirrhotic morphology liver and moderate volume of ascites fluid. Hepatomegaly. Gallbladder distention. Gallbladder sludge. A 9 mm nonobstructing right renal calculus ATED BY: SALO STEWART MD DICTATED DATE/TIME: 03/14/251138 SIGNED BY: SALO STEWART MD SIGNED DATE/TIME: 03/14/251138 - PROCEDURE(s): CXRP - CHEST PORTABLE REASON: cp ORDER NUMBER(s): [id number], ACCESSION NUMBER(s): [id number] CHEST RADIOGRAPH REASON FOR EXAM: Chest pain COMPARISON: None TECHNIQUE: One view of the chest is provided FINDINGS: The cardiomediastinal silhouette is within normal limits for size. There is elevation of the right hemidiaphragm. There is right basilar airspace disease. There is blunting of the right costophrenic sulcus which may be secondary to scarring or small right pleural effusion. There is no pneumothorax. There is irregularity of multiple right-sided ribs, possibly secondary to prior thoracic surgery. No acute rib fracture is identified. IMPRESSION: Right basilar airspace disease. Pneumonia is not ruled out. Irregularity of multiple right-sided ribs, possibly secondary to prior thoracic surgery. Correlate clinically. No acute rib fracture is identified. ATED BY: KENNETH JOSEPH MD DICTATED DATE/TIME: 03/13/252134 SIGNED BY: KENNETH JOSEPH MD SIGNED DATE/TIME: 03/13/252134 Condition at Discharge: Stable (RN) Final Diagnosis/Problems List #Chest pain, NSTEMI type 1; s/p PCI 03/19/25 # transaminitis likely due to liver cirrhosis, decompensated. Meld 9 # abdominopelvic ascites due to above, s/p paracentesis with 6.9 L removed # acute hypoxic respiratory failure, on 2 L O2 NC # COPD exacerbation # possible Penumonia # probable acute on Chronic CHF with diastolic dysfunction # hx of Status post SC with Stent placement (RCA) #Hypertension Discharge Disposition: Home Discharge Instruct/Medications Diet: Cardiac 2g Na,low cholest, See Comment Diet comment: Patient was instructed to adhere to a low-sodium diet Patient was instructed to restrict fluid intake to 1200 mL per day Activity: No Restrictions, As Tolerated Follow Up/Referral: Please follow up in discharge clinic Please follow up with PCP in 1-2 weeks Please follow up with GI in the outpatient setting Please follow up with Cardiology in the outpatient setting Medications: Aspirin 81 mg once daily Clopidogrel 75 mg once daily Atorvastatin 20 mg once daily Furosemide 40 mg once daily Spironolactone 100 mg once daily Lactulose 10 mL once daily Continue nebulizer breathing treatments as needed Hydrochlorothiazide 12.5 mg once daily Scheduled Aspirin (Aspirin Low Dose), 81 MG PO DAILY Atorvastatin Calcium (Atorvastatin Calcium), 40 MG PO DAILY Benazepril HCl (Benazepril Hydrochloride), 1 TAB PO DAILY, (Reported) Carvedilol (Carvedilol), 1 TAB PO BID, (Reported) Cholecalciferol (Vitamin D3), 1 CAP PO DAILY, (Reported) Clopidogrel Bisulfate (Clopidogrel), 75 MG PO DAILY Ezetimibe (Zetia), 1 TAB PO DAILY Hctz (Hydrochlorothiazide), 12.5 MG PO DAILY Hydrochlorothiazide W/Triamter (Triamterene/Hydrochloroth), 1 CAP PO QAM, (Reported) Potassium Chloride (Potassium Chloride ER), 1 TAB PO DAILY, (Reported) Spironolactone (Spironolactone), 1 TAB PO DAILY Scheduled PRN Albuterol Sulfate (Ventolin), 2.5 MG NEB Q6HPRN PRN Hydrocodone-Acetaminophen (Hydrocodone Bitartrate/AC 5-325 mg), 1 TAB PO Q6HP PRN Ipratropium [place] (Ipratropium [place]), 0.5 MG NEB Q6HP PRN Lactulose (Lactulose), 10 GM PO DAILY PRN Discharge Statement: "Patient was advised to return to the ER or call 911 if any headaches, dizziness, shortness of breath, chest pain, abdominal pain, bleeding, fevers, or worsening of medical condition. Patient was counseled about treatment plan, medications, possible side effects, patientverbalized understanding. All questions were answered to the best of my ability. This discharge took greater then 30 minutes in planning, reviewing documentation, counseling the patient, and discussing with other team members." ASSESSMENT ASSESSMENT Assessment #Chest pain, NSTEMI type 1; s/p PCI 03/19/25 # transaminitis likely due to liver cirrhosis, decompensated. Meld 9 # abdominopelvic ascites due to above, s/p paracentesis with 6.9 L removed # acute hypoxic respiratory failure, on 2 L O2 NC # COPD exacerbation # possible Penumonia -Hx Lung lobe resection # probable acute on Chronic CHF with diastolic dysfunction #hx of Status post SC with Stent placement (RCA) #Hypertension TOMAS RAMOS RESIDENT Mar 20, 2025 14:44 TIM BOURGEOIS RESIDENT Mar 20, 2025 16:08
[2025-03-20] MEDS ORDERED: EZET10TA22 PO (16:03)
--- NOTE | 2025-03-20 17:58 | DVHPN2 ---
Progress Note Date Seen: Mar 20, 2025 Resident Creating Document: CIARRA LINDSAY RESIDENT Has the PT tested + for MRSA If YES, has PT been informed?: No Medical Necessity Reason Pt with a Central, PICC or Fol: No Subjective Review of Systems Patient is a 69-year-old male with known history of cirrhosis (likely multifactorial, including alcohol-related liver disease), coronary artery disease s/p PCI with 3 stents placed to RCA on 03/16/25 for 99% ruptured plaque, and chronic kidney disease. Patient reports having a bowel movement today, with no nausea or vomiting. He is tolerating oral diet well, but now complains of mild bloating and abdominal distension noted this morning. No reports of hematemesis, melena, hematochezia, or diarrhea. No recent fevers or chills. No significant pain reported. He is currently afebrile and hemodynamically stable, continues on oral Protonix, The patient is being discharged today and he is counseled on alcohol cessation. His liver enzymes are trending down. GI team outpatient follow-up is scheduled in 24 weeks Objective vital signs Vital Sign Date Time Temp Pulse Resp B/P (MAP) Pulse Ox O2 Delivery O2 Flow Rate FiO2 03/20/25 17:00 99.5 94 16 131/85 (100) 96 99.5 03/20/25 08:53 Room Air 03/20/25 08:53 0 21 Total Intake and Output 03/19/25 03/19/25 03/20/25 15:00 23:00 07:00 Intake Total 1700 ml 400 ml Balance 1700 ml 400 ml medications Current Medications Medications Dose Ordered Sig/Kevin Route Start Time Stop Time Status Last Admin Dose Admin Nitroglycerin 0.4 mg Q5MINP PRN SL 03/13/25 23:30 Morphine Sulfate 2 mg Q30M PRN IV 03/13/25 23:30 UNV Pantoprazole Sodium 40 mg DAILY@0600 PO 03/14/25 06:00 03/20/25 05:35 40 MG Aspirin 81 mg DAILY PO 03/14/25 10:00 03/20/25 11:14 81 MG Atorvastatin Calcium 40 mg DAILY PO 03/14/25 10:00 03/20/25 11:17 40 MG Ceftriaxone Sodium 50 ml @ 100 mls/hr DAILY@09 IV 03/15/25 09:00 03/20/25 11:10 100 MLS/HR Furosemide 40 mg DAILY IV 03/15/25 10:00 03/20/25 11:11 40 MG Hydrochlorothiazide 12.5 mg DAILY PO 03/16/25 10:00 03/20/25 11:13 12.5 MG Sucralfate 1 gm BID@0600,2200 PO 03/15/25 22:00 03/20/25 05:35 1 GM Lactulose 30 ml BID PO 03/16/25 22:00 03/20/25 11:12 30 ML Spironolactone 100 mg DAILY PO 03/18/25 10:00 03/20/25 11:12 100 MG Morphine Sulfate 1 mg Q6HPRN PRN IV 03/17/25 19:00 03/20/25 11:32 1 MG Clopidogrel Bisulfate 75 mg DAILY PO 03/18/25 10:00 03/20/25 11:15 75 MG Albuterol 2.5 mg Q6HPRN PRN NEB 03/19/25 19:30 03/20/25 08:53 2.5 MG Ipratropium [place] 0.5 mg Q6HP PRN NEB 03/19/25 19:30 03/20/25 08:53 0.5 MG Examination General Alert, NAD Abdomen Soft, mildly distended, NT, no guarding or rebound. No fluid wave noted. Normoactive bowel sounds. No hepatosplenomegaly. Skin No jaundice, spider angiomas, or palmar erythema Neuro No asterixis Cardio/Pulm WNL laboratory and microbiology Laboratory Tests 03/20/25 05:58 Test 03/20/25 05:58 Range/Units Serum Glucose 91 74-106 mg/dL Microbiology Date/Time Source Procedure Growth Status 03/16/25 10:22 Ascities Fluid Gram Stain - Final Resulted 03/16/25 10:22 Ascities Fluid Body Fluid Culture - Preliminary Resulted Problem List/Assessment/Plan Problem List/Assessment/Plan Assessment 1. Decompensated cirrhosis with ascites, coagulopathy, thrombocytopenia, and hyperammonemia. MELD score ?9. 2. Ascites s/p large-volume paracentesis (6.9 L), no SBP. 3. Gallbladder sludge and distention no acute cholecystitis. 4. Hepatic encephalopathy risk ammonia elevated, currently on lactulose. 5. Alcohol-related liver disease ongoing alcohol use. 6. Macrocytic anemia, thrombocytopenia likely from liver disease and alcohol. 7. Chronic hepatitis B core Ab positive, surface Ab positive, surface antigen negative (resolved infection). GI Plan Hepatic/Ascites * Continue lactulose 10 mL PO PRN, titrate to 23 BMs/day.. * Start spironolactone 100 mg daily (monitor BP, electrolytes, renal function). * Low sodium diet, daily weights, strict I/O. * outpatient GI follow up in 2-3 weeks workup for autoimmune hepatitis, hemochromatosis, alpha-1 antitrypsin, HCV/HBV . EDUCATED THE PATIENT ON ALCOHOL CESSATION AND BEING COMPLIANT WITH IT. Hepatic Encephalopathy * Maintain lactulose; consider rifaximin if mental status worsens. * Monitor ammonia and neuro status daily. Nutrition * Continue PO feeds. * Recommend high-protein, low-sodium diet. * Nutritional support with thiamine, folate due to alcohol use. Surveillance * Recommend EGD for variceal screening (as outpatient). * Ultrasound with AFP every 6 months for HCC surveillance. GI/Nutrition * Continue Protonix 40 mg PO daily, caralfate * Diet: Regular PO diet, tolerating well. * Monitor for signs of GI bleeding. OUTPATIENT GI FOLLOW-UP IN 2-3 WEEKS. WE ARE SIGNING OFF ON THIS CASE. Case discussed in detail with the attending physician, including the clinical presentation, diagnostic workup, and comprehensive management plan. The patient was present for the discussion and demonstrated understanding of his condition and the proposed plan. Plan discussed with: Patient Dietary Evaluation Review Comments: 1) If patient remains NPO > 7 days, consider EN/TPN to meet at least 75% of estimated daily needs 2) Advance to 2g Na 80g Pro hepatic diet when medically feasible 3) Consider Vitamin B1, Vitamin B9, and MVI supplementation as necessary 4) Follow-up with hepatology, gastroenterology, cardiology, and pulmonology 5) Follow-up with social media marketer r/t ETOH abuse 6) Continue to monitor I&O, labs, and skin integrity Expected Outcomes/Goals: 1) patient to receive nutrition support within 7 days of NPO status 2) labs to improve 3) diet to advance 4) f/u in 3-5 days CIARRA LINDSAY RESIDENT Mar 20, 2025 17:58
== END 2025-03-20 17:45 | disposition home or self-care (01) | DRG 321 ==
LOC: EDBD 20:06 → ER 20:06 → OVERFLOW 23:28 → TELE-CENTR 03-14 18:06
PROVIDERS: ADMIT Internal Medicine Geriatric Medicine; ATTEND Internal Medicine Geriatric Medicine
PROC: 0W9G3ZX Drainage of Peritoneal Cavity, Percutaneous Approach, Diagnostic (ICD-10-PCS; 2025-03-16)
PROC: 027036Z Dilation of Coronary Artery, One Artery with Three Drug-eluting Intraluminal Devices, Percutaneous Approach (ICD-10-PCS; principal; 2025-03-19)
PROC: 4A023N7 Measurement of Cardiac Sampling and Pressure, Left Heart, Percutaneous Approach (ICD-10-PCS; 2025-03-19)
PROC: B211YZZ Fluoroscopy of Multiple Coronary Arteries using Other Contrast (ICD-10-PCS; 2025-03-19)
DX: I21.4 Non-ST elevation (NSTEMI) myocardial infarction (principal); I50.33 Acute on chronic diastolic (congestive) heart failure; J96.01 Acute respiratory failure with hypoxia; J15.69 Pneumonia due to other Gram-negative bacteria; J15.9 Unspecified bacterial pneumonia; J44.1 Chronic obstructive pulmonary disease with (acute) exacerbation; D68.9 Coagulation defect, unspecified; B18.1 Chronic viral hepatitis B without delta-agent; R18.8 Other ascites; J44.0 Chronic obstructive pulmonary disease with (acute) lower respiratory infection; E78.5 Hyperlipidemia, unspecified; E66.01 Morbid (severe) obesity due to excess calories; R74.01 Elevation of levels of liver transaminase levels; K74.60 Unspecified cirrhosis of liver; K21.9 Gastro-esophageal reflux disease without esophagitis; D69.59 Other secondary thrombocytopenia; D53.9 Nutritional anemia, unspecified; I25.10 Atherosclerotic heart disease of native coronary artery without angina pectoris; I11.0 Hypertensive heart disease with heart failure; K70.9 Alcoholic liver disease, unspecified; K82.8 Other specified diseases of gallbladder; E11.9 Type 2 diabetes mellitus without complications; Z79.1 Long term (current) use of non-steroidal anti-inflammatories (NSAID); Z79.899 Other long term (current) drug therapy; Z96.641 Presence of right artificial hip joint; Z82.49 Family history of ischemic heart disease and other diseases of the circulatory system
CPT/HCPCS: 36415; 49083; 71045; 76705; 76942; 78452; 80048; 80053; 80061; 80307; 81001; 82140; 83036; 83615; 83880; 83986; 84443; 84484; 85025; 85610; 85730; 86704; 86706; 86708; 86803; 86850; 86900; 86901; 87205; 87340; 89051; 92941; 93005; 93017; 93306; 93458; 94640; 96365; 99152; 99291; G0378; J2250; Q9967